=== PATIENT | female | born 1975 ===

== ENCOUNTER → 2020-04-02 13:54 | Outpatient (BNVA) | payer OTHER, SELFPAY | PROVIDERS: PCP Nurse Practitioner Family; Visit Provider Surgery | DX: K64.4 Residual hemorrhoidal skin tags (principal) | CPT/HCPCS: 99202 ==

== ENCOUNTER 2020-04-18 08:02 | Day surgery (SDC) | payer OTHER, SELFPAY ==
[2020-04-14 15:38] VITALS: BMI 32.9
--- NOTE | 2020-04-17 10:24 | P.CONAN_ITS ---
Documented by User: Jennifer Silvestre 04/17/20 10:26 HPI - Anesthesia Eval Consult details Narrative: 44yoF for Hemorrhoidectomy,EUA possible sphincterotomy PMFSH Past Medical History Medical History Back pain Depression with anxiety Essential hypertension External hemorrhoids with complication Hemorrhoid Psoriasis Rectal or anal pain Restless leg syndrome Family History Family History Mother Diabetes mellitus Essential hypertension Sister Diabetes mellitus Psoriasis Surgical History Surgical History History of partial hysterectomy Social History Social History Alcohol intake: never Smoking Status: Never smoker Use of substances other than those prescribed or required for medical reasons: No Advance Directives: No Advance Directives Information Provided: No Advance Directives on File: No Meds Allergies Allergy/AdvReac Type Severity Reaction Status Date / Time N.K.D.A Allergy Unknown none Uncoded 03/25/20 09:29 Home Medications Medication Instructions Recorded Confirmed Type cholecalciferol (vitamin D3) 50 50 mcg PO DAILY 03/25/20 04/14/20 History mcg (2,000 unit) capsule clobetasol 0.05 % topical cream TOPICAL 03/25/20 03/25/20 History hydroxyzine HCl 25 mg tablet 25 mg PO BID 03/25/20 04/14/20 History lisinopril 10 mg tablet 10 mg PO DAILY 03/25/20 04/14/20 History sertraline 100 mg tablet 150 mg PO DAILY tab 03/25/20 04/14/20 History sertraline 50 mg tablet 50 mg PO DAILY 03/25/20 04/14/20 History Exam Exam Date and Time: April 17, 2020 1024 Height,Weight and Vital Signs: Height 4 ft 11 in Weight 73.936 kg Assessment and Plan Assessment Anesthesia Assessment: Chart Reviewed Documented by User: Fadumo Olivarez 04/18/20 09:10 [facility] Past Medical History Medical History Back pain Depression with anxiety Essential hypertension External hemorrhoids with complication Hemorrhoid Psoriasis Rectal or anal pain Restless leg syndrome Family History Family History Mother Diabetes mellitus Essential hypertension Sister Diabetes mellitus Psoriasis Surgical History Surgical History History of partial hysterectomy Social History Social History Alcohol intake: never Smoking Status: Never smoker Use of substances other than those prescribed or required for medical reasons: No Advance Directives: No Advance Directives Information Provided: No Advance Directives on File: No Meds Allergies Allergy/AdvReac Type Severity Reaction Status Date / Time N.K.D.A Allergy Unknown none Uncoded 03/25/20 09:29 Home Medications Medication Instructions Recorded Confirmed Type cholecalciferol (vitamin D3) 50 50 mcg PO DAILY 03/25/20 04/14/20 History mcg (2,000 unit) capsule clobetasol 0.05 % topical cream TOPICAL 03/25/20 03/25/20 History hydroxyzine HCl 25 mg tablet 25 mg PO BID 03/25/20 04/14/20 History lisinopril 10 mg tablet 10 mg PO DAILY 03/25/20 04/14/20 History sertraline 100 mg tablet 150 mg PO DAILY tab 03/25/20 04/14/20 History sertraline 50 mg tablet 50 mg PO DAILY 03/25/20 04/14/20 History Exam Airway Mallampati Class: II TM Dist: >3cm Neck ROM: Full Assessment and Plan Assessment Anesthesia Assessment: Anesthesia Plan Discussed and Chart Reviewed Final Anesthetic Review NPO: Yes ASA Class: II Final Preanesthetic Review: No Changes in Pt Med Stat, Meds/Allgs Chart Reviewed, Consent Obtained/Reviewed and Anes Risks/Benef Reviewed Patient Risk: Low Procedure Risk: Low Assessment/Block/Sedation in SS: Assess/Block/Sedation-SS Anesthetic Plan Anesthetic Plan: GA Disposition: Standard PACU
[2020-04-18] VITALS (7 sets, daily range): BP systolic 89–133; BP diastolic 54–89; PULSE 59–76; RESP 18–20; TEMP 35.4–36.2; O2SAT 94–100
[2020-04-18] MEDS: Lactated Ringers 1,000 ML 100 ML IVCONT (08:53)
--- NOTE | 2020-04-18 09:01 | MHC.SHP ---
Pre-Procedural Eval Section B Chief Complaint: hemorrhoids Allergies: Allergies Allergy/AdvReac Type Severity Reaction Status Date / Time N.K.D.A Allergy Unknown none Uncoded 03/25/20 09:29 Plan Patient has been examined and remains a candidate for the planned procedure
--- NOTE | 2020-04-18 09:46 | PM.OP ---
Brief Operative Note Date of Service: 04/18/20 Pre-op diagnosis: ext hemorrhoids with pain Post-op diagnosis: same Procedure: EUA, hemorrhoidectomy Surgeon: Abdoul Hunt MD Anesthesia: MAC Estimated blood loss (mL): 10 Pathology: other (hemorrhoids) Condition: stable Disposition: PACU
--- NOTE | 2020-04-18 10:35 | OP_ITS ---
SURGEON: Abdoul Hunt MD INDICATIONS: The patient is a 44-year-old female, who was seen in the office because of what she says was painful bowel movements. She describes a large hemorrhoidal column on the right side. She says she has had for many years. She says this becoming more painful. I told her it would be best to proceed with exam under anesthesia and likely hemorrhoidectomy. I explained to her the technique of procedure. I reviewed the risks, benefits, and alternatives, and had given consent. PREOPERATIVE DIAGNOSIS: POSTOPERATIVE DIAGNOSIS: PROCEDURE PERFORMED: Exam under anesthesia, hemorrhoidectomy x1. ESTIMATED BLOOD LOSS: COMPLICATIONS: ANESTHESIA: ASSISTANTS: SPECIMENS: PREOPERATIVE DIAGNOSES: Rectal bleeding, external hemorrhoids. DESCRIPTION OF PROCEDURE: She was brought to the operating room and placed in prone josh-knife position by monitored anesthesia care. The buttocks were retracted with wide tape laterally on both sides. The perianal area was prepped and draped in usual sterile fashion. The surgical time-out was done. Examination of the anal orifice revealed a large external hemorrhoidal column on the right side. I inserted the Baldo-Gallagher retractor and examined the anal canal circumferentially. There were no other lesions seen. There was no anal fissure. There was no induration or any signs of any bleeding. I applied a Thomas grasper at the external hemorrhoidal column on the right side. I made a [id number] stitch at its pedicle near the dentate line using chromic 3-0. I made an incision around the hemorrhoidal column elliptically using blade #15. I excised this hemorrhoidal column along this incision above the plane of sphincters using scissors. I closed this incision with running chromic 3-0 stitch. The incision was reinforced with chromic 3-0 sutures in [id number] fashion for oozing areas. I was then infiltrated the perianal area with Marcaine 0.5% for postop analgesia. Please note that I had also infiltrated the perianal area with lidocaine 1% at the beginning of the case. Again, there were no other lesions seen on careful examination of the anal canal. The procedure was then completed. The patient tolerated the procedure well. There were no complications noted. There was a blood loss about 3 mL. The patient was then transferred back to the recovery room with stable vital signs. MD MITCH Rodriguez/TIFFANIE / [id number]
--- NOTE | 2020-04-18 10:59 | HO.POSTANES ---
Post Anesthesia Evaluation Post Anesthesia Evaluation Vital Signs: Vital Signs Temp Pulse Resp BP Pulse Ox 04/18/20 10:31 97.1 F 65 20 133/89 100 04/18/20 10:16 76 20 112/72 99 04/18/20 10:01 60 20 92/57 L 95 04/18/20 09:56 61 20 90/54 L 94 04/18/20 09:51 62 20 89/62 L 94 04/18/20 09:46 97.0 F 65 18 89/68 L 95 04/18/20 08:42 95.8 F L 59 18 122/63 98 Anesthesia: General LMA Mental Status: Awake Pain Control: Satisfactory Nausea/Vomiting: None Hydration: Adequate Anesthesia-Related Issues: No Anes. Related Issues
== END 2020-04-18 11:18 | disposition home or self-care (01) ==
PROVIDERS: PCP Nurse Practitioner Family; Visit Provider Surgery
PROC: (CPT 46999; principal; 2020-04-18 09:30)
DX: K64.4 Residual hemorrhoidal skin tags (principal)
CPT/HCPCS: 46999; 88304; J1100; J2250; J2405; J3010

== ENCOUNTER → 2020-04-30 14:30 | Outpatient (BNVA) | payer OTHER, SELFPAY | PROVIDERS: PCP Nurse Practitioner Family; Visit Provider Anesthesiology | DX: G58.9 Mononeuropathy, unspecified (principal); E65 Localized adiposity; G89.4 Chronic pain syndrome | CPT/HCPCS: 99212 ==

== ENCOUNTER → 2020-05-07 15:22 | Outpatient (BNVA) | payer OTHER, SELFPAY | PROVIDERS: PCP Nurse Practitioner Family; Visit Provider Surgery | DX: K64.4 Residual hemorrhoidal skin tags (principal) | CPT/HCPCS: 99212 ==

== ENCOUNTER → 2020-06-02 14:08 | Outpatient (BNVA) | payer OTHER, SELFPAY | PROVIDERS: PCP Nurse Practitioner Family; Visit Provider Surgery | DX: K62.89 Other specified diseases of anus and rectum (principal) | CPT/HCPCS: 99212 ==

== ENCOUNTER → 2020-06-30 13:49 | Outpatient (BNVA) | payer OTHER, SELFPAY | PROVIDERS: PCP Nurse Practitioner Family; Visit Provider Anesthesiology | DX: G58.9 Mononeuropathy, unspecified (principal); E65 Localized adiposity; G89.4 Chronic pain syndrome; M16.10 Unilateral primary osteoarthritis, unspecified hip | CPT/HCPCS: 99212 ==

== ENCOUNTER 2020-11-03 11:38 | Outpatient (REF) | payer OTHER, SELFPAY ==
[2020-11-03 14:16] LABS: Alanine Aminotransferase 19 U/L (0-31); Albumin Level 4.1 g/dL (3.5-5.0); Alkaline Phosphatase 60 U/L (39-117); Anion Gap 12 (12-20); Aspartate Amino Transferase 18 U/L (5-31); Bilirubin Total 0.4 mg/dL (0.0-1.0); Blood Urea Nitrogen 18 mg/dL (9-16); Calcium 8.7 mg/dL (8.4-10.2); Carbon Dioxide 25 mmol/L (22-29); Chloride 107 mmol/L (96-108); Cholesterol 181 mg/dL; Estimated Glomerular Filt Rate > 60; Glucose Fasting 80 mg/dL (60-99); HDL Cholesterol 55 mg/dL; LDL Cholesterol Calculated 113 mg/dl; Potassium 4.3 mmol/L (3.3-5.1); Sodium 140 mmol/L (135-145); Total Protein 6.4 g/dL (6.5-8.0); Triglycerides 67 mg/dL
[2020-11-03 14:30] LABS: TSH reflex Free T4 1.27 uIU/mL (0.32-4.0)
== END 2020-11-03 11:39 | disposition home or self-care (01) ==
LOC: HO.HMGCLDS 11:38
PROVIDERS: PCP Nurse Practitioner Family; Visit Provider Nurse Practitioner Family
DX: Z00.00 Encounter for general adult medical examination without abnormal findings (principal)
CPT/HCPCS: 36415; 80053; 80061; 84443

== ENCOUNTER 2020-11-13 10:54 | Outpatient (REF) | payer OTHER, SELFPAY ==
[2020-11-14 11:37] LABS: BV Int Neg Control Negative (Negative); BV Int Pos Control Positive (Positive)
[2020-11-14 11:47] LABS: CT PCR NOT DETECTED (Not Detect.); NG PCR NOT DETECTED (Not Detect.)
== END 2020-11-13 10:55 | disposition home or self-care (01) ==
LOC: HO.LAB 10:54
PROVIDERS: PCP Nurse Practitioner Family; Visit Provider Obstetrics & Gynecology
DX: Z11.3 Encounter for screening for infections with a predominantly sexual mode of transmission (principal); B37.3 Candidiasis of vulva and vagina
CPT/HCPCS: 87480; 87491; 87510; 87591; 87660; 99212

== ENCOUNTER 2020-12-12 14:10 | Outpatient (REF) | payer OTHER, SELFPAY ==
--- NOTE | ~2020-12-12 | MM_ITS ---
EXAMINATION: MM SCREENING DIGITAL BREAST TOMOSYNTHESIS, BILATERAL CLINICAL INFORMATION: Screening. Asymptomatic. The lifetime risk of breast cancer based on the Tyrer-Cuzick Model is 10%. COMPARISON: Mammography: 04/25/2014 (new baseline) TECHNIQUE: Digital breast tomosynthesis is performed in both the craniocaudal and mediolateral oblique views along with computer-aided detection (CAD). Synthesized 2D images are generated from the tomosynthesis. FINDINGS: There are scattered areas of fibroglandular density (ACR BI-RADS breast composition Category b). There are no significant masses, abnormal calcifications, or other abnormalities. Parenchymal pattern is similar to prior study. The axilla and skin contours are unremarkable. No significant changes. MM/MM tomosynthesis screening BI IMPRESSION: No mammographic evidence of malignancy. ASSESSMENT: BI-RADS 1: Negative RECOMMENDATION: Routine annual mammography screening. This patient's information was entered into a reminder system with a target due date for their next mammogram.
== END 2020-12-12 14:11 | disposition home or self-care (01) ==
LOC: HO.MAMMO 14:10
PROVIDERS: Visit Provider Nurse Practitioner Family
DX: Z12.31 Encounter for screening mammogram for malignant neoplasm of breast (principal)
CPT/HCPCS: 77063; 77067

== ENCOUNTER → 2021-01-05 15:52 | Outpatient (BNVA) | payer OTHER, SELFPAY | PROVIDERS: Visit Provider Anesthesiology | DX: G58.9 Mononeuropathy, unspecified (principal); G89.4 Chronic pain syndrome; M16.10 Unilateral primary osteoarthritis, unspecified hip; E65 Localized adiposity; Z79.899 Other long term (current) drug therapy | CPT/HCPCS: 99212 ==

== ENCOUNTER 2021-01-19 16:02 | Outpatient (REF) | payer OTHER, SELFPAY ==
--- NOTE | ~2021-01-19 | MR_ITS ---
MR LUMBAR SPINE WITHOUT CONTRAST CLINICAL INFORMATION: Spinal stenosis, lumbar region. COMPARISON: Lumbar spine MRI 12/20/2018. TECHNIQUE: MRI of the lumbar spine was obtained using routine sequences without contrast. FINDINGS: There are 5 nonrib-bearing lumbar-type vertebral bodies. Lumbar alignment is maintained. Vertebral body heights are preserved. There is marrow edema along the upper endplate of L2 eccentric to the left side that could be degenerative though a mild acute upper endplate compression fracture would be difficult to exclude. No additional bone marrow edema. Conus terminates at the L2 level. There are no significant extraspinal soft tissue findings. Hypertrophic degenerative changes across the SI joints bilaterally. At T10-T11, a shallow central disc protrusion mildly narrows the central canal. Findings unchanged. L1-L2: There is an annular disc bulge eccentric to the right side and there is mild bilateral facet arthropathy. No central canal stenosis and no foraminal stenosis. Findings unchanged. L2-L3: Small annular disc bulge and mild to moderate bilateral facet arthropathy. No central canal stenosis and no foraminal stenosis. Findings unchanged. L3-L4: Annular disc bulge and moderate bilateral facet arthropathy. No central canal stenosis. Mild foraminal encroachment bilaterally. Findings unchanged. L4-L5: There is a diffuse annular disc bulge and there is moderate bilateral facet arthropathy. No central canal stenosis. There is mild foraminal encroachment bilaterally. L5-S1: Shallow central disc protrusion associated with an annular fissure is stable, mildly narrowing the central canal. Disc osteophyte and facet arthropathy result in similar moderate to severe left and moderate right foraminal stenosis with mass effect on the exiting left greater than right L5 nerve roots. MR/MR lumbar spine wo con IMPRESSION: - At L5-S1, multifactorial degenerative changes result in stable appearing moderate to severe left and moderate right foraminal stenosis with mass effect on the exiting left greater than right L5 nerve roots. A shallow central disc protrusion associated with an annular fissure at this level. Additional stable appearing degenerative findings as discussed above. - There is marrow edema along the upper endplate of L2 eccentric to the left side that could be degenerative though a mild acute upper endplate compression fracture would be difficult to exclude. - At T10-T11, a shallow central disc protrusion continues to mildly narrow the central canal and slightly flatten the ventral cord.
== END 2021-01-19 16:03 | disposition home or self-care (01) ==
LOC: HO.MRI 16:02
PROVIDERS: Visit Provider Anesthesiology
DX: M48.061 Spinal stenosis, lumbar region without neurogenic claudication (principal)
CPT/HCPCS: 72148

== ENCOUNTER → 2021-02-02 11:24 | Outpatient (BNVA) | payer OTHER, SELFPAY | PROVIDERS: PCP Nurse Practitioner Family; Visit Provider Anesthesiology | DX: M16.10 Unilateral primary osteoarthritis, unspecified hip (principal); M51.36 Other intervertebral disc degeneration, lumbar region; M48.061 Spinal stenosis, lumbar region without neurogenic claudication; M47.817 Spondylosis without myelopathy or radiculopathy, lumbosacral region; G58.9 Mononeuropathy, unspecified; G89.4 Chronic pain syndrome; E65 Localized adiposity | CPT/HCPCS: 99212 ==

== ENCOUNTER 2021-02-18 14:41 | Outpatient (REF) | payer OTHER, SELFPAY ==
[2021-02-19 02:12] LABS: CT PCR NOT DETECTED (Not Detect.); NG PCR NOT DETECTED (Not Detect.)
[2021-02-19 08:41] LABS: BV Int Neg Control Negative (Negative); BV Int Pos Control Positive (Positive)
[2021-02-21 13:41] LABS: HPV mRNA E6/E7 rflx Not Detected (Not Detected)
== END 2021-02-18 14:42 | disposition home or self-care (01) ==
LOC: HO.LAB 14:41
PROVIDERS: Visit Provider Advanced Practice Midwife
DX: Z01.419 Encounter for gynecological examination (general) (routine) without abnormal findings (principal); Z11.3 Encounter for screening for infections with a predominantly sexual mode of transmission; Z11.51 Encounter for screening for human papillomavirus (HPV); N76.0 Acute vaginitis; N95.1 Menopausal and female climacteric states; Z90.711 Acquired absence of uterus with remaining cervical stump
CPT/HCPCS: 87480; 87491; 87510; 87591; 87624; 87660; 88142

== ENCOUNTER 2021-03-24 06:39 | Outpatient (REF) | payer OTHER, SELFPAY ==
--- NOTE | ~2021-03-24 | FL_ITS ---
EXAMINATION: XR FLUOROSCOPY WITH IMAGES CLINICAL INFORMATION: M51.36 - Other intervertebral disc degeneration, lumbar COMPARISON: MR lumbar spine 01/19/2021 TECHNIQUE: Fluoroscopy performed by Dr. Kaushik Lord. Fluoroscopy time: 0.6 minutes DAP: 7.06 Gycm2 Images: 2 FINDINGS: There are spinal needles overlying the bilateral outer L5 neural foramen. There is contrast seen in the respective nerve sheaths. Some early transforaminal epidural extension is suggested. No visible vascular communication. FL/FL guidance in treatment room IMPRESSION: Fluoroscopy for pain management procedures.
== END 2021-03-24 06:40 | disposition home or self-care (01) ==
LOC: HO.RADIR 06:39
PROVIDERS: Visit Provider Anesthesiology
DX: M51.36 Other intervertebral disc degeneration, lumbar region (principal); M47.817 Spondylosis without myelopathy or radiculopathy, lumbosacral region; M48.061 Spinal stenosis, lumbar region without neurogenic claudication; M16.10 Unilateral primary osteoarthritis, unspecified hip; G89.4 Chronic pain syndrome; E65 Localized adiposity; G58.9 Mononeuropathy, unspecified
CPT/HCPCS: J3300; Q9967

== ENCOUNTER → 2021-04-22 13:14 | Outpatient (BNVA) | payer OTHER, SELFPAY | PROVIDERS: PCP Nurse Practitioner Family; Visit Provider Anesthesiology | DX: M16.10 Unilateral primary osteoarthritis, unspecified hip (principal); M51.36 Other intervertebral disc degeneration, lumbar region; M48.061 Spinal stenosis, lumbar region without neurogenic claudication; M47.817 Spondylosis without myelopathy or radiculopathy, lumbosacral region; G58.9 Mononeuropathy, unspecified; G89.4 Chronic pain syndrome; E65 Localized adiposity | CPT/HCPCS: 64483 ==

== ENCOUNTER 2021-06-18 16:00 | Outpatient (RCR) | payer OTHER, SELFPAY ==
--- NOTE | 2021-06-03 14:57 | MHC.PT.EP ---
[facility] [place] Office [place] Office [place] Office [address] Amber Amaral [address] [phone] F: [phone] F: [phone] F: [phone] F: [phone] Physical Therapy Plan of Care Date of Evaluation: Date of Surgery: n/a Diagnosis: lumbosacral region spondylosis Assessment: Patient is a 46 year old female presenting to PT with complaints of pain in her low back. Pt reports onset of pain began 15 years ago after a fall on ice. She presents today with impairments in pain, lumbar ROM, hip strength, core strength, and posture. Pt's current occupation is none, with baseline physical activities including ADLs, lifting, standing, ambulation. 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 Clinical presentation today is most consistent with signs and sx associated with chronic low back pain with MRI findings of degenerative changes as outlined as above and pt will benefit from skilled PT to address the following problems and impairments noted upon evaluation: pain, lumbar ROM, hip strength, core strength, and posture. These problems limit the patient with the following functional activities: ADLs, lifting, standing, ambulation. The prescribed treatment plan of care is medically necessary. Co-morbidities of ADLs, lifting, standing, ambulation were identified and taken into considerations of plan of care. Pt was educated on HEP, role of PT, prognosis, POC. Frequency and Duration: The patient will be seen 2 x week x 4 weeks Short Term Goals: Pt will demonstrate ability to complete lumbar AROM with min to no pain in 2 weeks. Pt will demonstrate improved hip strength by 1/3 MMT for improved lumbopelvic stability in 2 weeks. Pt will demonstrate improved postural awareness by sitting with biomechanically correct posture without cues throughout session to improve overall postural function in 2 weeks. Pt will demonstrate ability to perform PPT with good TA recruitment in 2 weeks for improved core strength. Shelter Goals: Pt will demonstrate improved Tommy score to <20% disability in 4 weeks for improved functional mobility. Pt will demonstrate ability to stand with min to no pain x 15 min in 4 weeks for improved ability to shower and wash dishes. Pt will demonstrate ability to ambulate x 15 min in 4 weeks with min to no pain for improved ability to grocery shop. Treatment Plan: Modalities to reduce pain, spasms and effusion. Manual therapy to restore motion and function. Therapeutic exercise to improve strength and flexibility. Neuromuscular re-education for posture and balance. Therapeutic activities to return to functional activities of daily living. Electronically signed by: Rosie Iraheta, PT, DPT, ATC Please sign and return to therapist. Thank you for your referral.
--- NOTE | 2021-07-17 11:10 | MHC.PT.DC ---
[facility] [place] Office [place] Office [place] Office [address] [phone] F: [phone] F: [phone] F: [phone] F: [phone] Physical Therapy Discharge Report Diagnosis: lumbosacral region spondylosis Date of Surgery: n/a Date of Evaluation: 06/03/21 Date of Discharge: 07/17/21 Treatments to Date: 3 Cancellations to Date: 4 No Shows to Date: 2 Discharge Status: Visit Non-compliance Discharge Summary: Pt has failed to comply with [facility] attendance policy and no showed and cancelled her remaining 4 appointments. Current status unknown at this time. Electronically signed by: Rosie Iraheta, PT, DPT, ATC Please sign and return to therapist. Thank you for your referral.
== END 2021-07-17 11:10 | disposition home or self-care (01) ==
LOC: HO.PTCHIC 16:00
PROVIDERS: PCP Nurse Practitioner Family; Visit Provider Anesthesiology
DX: M47.817 Spondylosis without myelopathy or radiculopathy, lumbosacral region (principal); M51.36 Other intervertebral disc degeneration, lumbar region
CPT/HCPCS: 97110; 97162

== ENCOUNTER 2021-10-19 11:04 | Outpatient (REF) | payer OTHER, SELFPAY ==
--- NOTE | ~2021-10-19 | XR_ITS ---
EXAMINATION: XR KNEE, RIGHT CLINICAL INFORMATION: Pain COMPARISON: None TECHNIQUE: Four views of the right knee. FINDINGS: Bones and soft tissues are normal. No fracture or joint effusion. Alignment is anatomic. Joint spaces are well maintained. No abnormal soft tissue calcification. XR/XR knee RT 4V IMPRESSION: Normal right knee.
== END 2021-10-19 11:05 | disposition home or self-care (01) ==
LOC: HO.HMGCX 11:04
PROVIDERS: PCP Nurse Practitioner Family; Visit Provider Nurse Practitioner Family
DX: M25.561 Pain in right knee (principal)
CPT/HCPCS: 73564

== ENCOUNTER 2021-12-14 14:14 | Outpatient (REF) | payer OTHER, SELFPAY ==
--- NOTE | ~2021-12-14 | MM_ITS ---
EXAMINATION: MM SCREENING DIGITAL BREAST TOMOSYNTHESIS, BILATERAL CLINICAL INFORMATION: Screening. Asymptomatic. The lifetime risk of breast cancer based on the Tyrer-Cuzick Model is 7%. COMPARISON: Mammography: 12/12/2020, 04/25/2014 TECHNIQUE: Digital breast tomosynthesis is performed in both the craniocaudal and mediolateral oblique views along with computer-aided detection (CAD). Synthesized 2D images are generated from the tomosynthesis. FINDINGS: There are scattered areas of fibroglandular density (ACR BI-RADS breast composition Category b). There are no significant masses, abnormal calcifications, or other abnormalities. Parenchymal pattern is similar to prior studies. No significant changes. MM/MM tomosynthesis screening BI IMPRESSION: No mammographic evidence of malignancy. ASSESSMENT: BI-RADS 1: Negative RECOMMENDATION: Routine annual mammography screening. This patient's information was entered into a reminder system with a target due date for their next mammogram.
== END 2021-12-14 14:15 | disposition home or self-care (01) ==
LOC: HO.MAMMO 14:14
PROVIDERS: PCP Nurse Practitioner Family; Visit Provider Nurse Practitioner Family
DX: Z12.31 Encounter for screening mammogram for malignant neoplasm of breast (principal)
CPT/HCPCS: 77063; 77067

== ENCOUNTER 2021-12-15 06:14 | Outpatient (REF) | payer OTHER, SELFPAY ==
--- NOTE | ~2021-12-15 | FL_ITS ---
EXAMINATION: XR FLUOROSCOPY WITH IMAGES CLINICAL INFORMATION: M47.816 - Spondylosis without myelopathy or radiculopathy, lumbar region COMPARISON: MR lumbar spine 01/19/2021 TECHNIQUE: Fluoroscopy performed by pain management physician. Fluoroscopy time: 0.4 minutes. Cumulative Dose: 5.93 mGy. DAP: 1.16 Gy-cm2. Images: 2. FINDINGS: There are spinal needles overlying the outer left L2 and L4 neural foramen. There is contrast seen in the respective nerve sheaths. There is also contrast noted at at the left L3 nerve sheath. Some early transforaminal epidural extension is suggested. No visible vascular communication. FL/FL guidance in treatment room IMPRESSION: Fluoroscopy for pain management procedures.
== END 2021-12-15 06:15 | disposition home or self-care (01) ==
LOC: HO.RADIR 06:14
PROVIDERS: Visit Provider Anesthesiology
DX: M47.816 Spondylosis without myelopathy or radiculopathy, lumbar region (principal); G58.9 Mononeuropathy, unspecified; E65 Localized adiposity; G89.4 Chronic pain syndrome; M16.10 Unilateral primary osteoarthritis, unspecified hip; M51.36 Other intervertebral disc degeneration, lumbar region; M48.061 Spinal stenosis, lumbar region without neurogenic claudication
CPT/HCPCS: 64493; 64494; 64495; J3300

== ENCOUNTER 2022-01-26 07:15 | Day surgery (SDC) | payer OTHER, SELFPAY ==
--- NOTE | ~2022-01-26 | FL_ITS ---
EXAMINATION: XR FLUOROSCOPY WITH IMAGES CLINICAL INFORMATION: M47.816 - Spondylosis without myelopathy or radiculopathy, lumbar region. Sprint implant. COMPARISON: MR lumbar spine 01/19/2021 TECHNIQUE: Fluoroscopy performed by Dr. Kaushik Lord. Fluoroscopy time: 0.01 minutes. Cumulative Dose: 3.2 mGy. DAP: 0.874 Gy-cm2. Images: 2. FINDINGS: Initial image shows needle directed towards left L5 neural foramen just inferior to the pedicle. Follow-up image shows lead with tip in region of outer left L5 foramen. FL/FL guidance in OR IMPRESSION: Fluoroscopy for pain management procedure.
--- NOTE | 2022-01-26 07:24 | MHC.SHP ---
Pre-Procedural Eval Section A Date of Service: 01/26/22 The patient is an INPATIENT: No Changes since office visit: Yes Patient answered all questions The History & Physical has been completed within 30 days and I have reviewed it.: No Section B Chief Complaint: Spondylosis without myelopathy or radiculopathy, l Details of Present Illness: as above Relevant Family History (Specify if Yes): No Relevant Social History: None Present Medications: see Short Stay Collaborative assessment Medical History: No relevant PMH History of Previous Operations: No relevant previous surgery Allergies: Allergies Allergy/AdvReac Type Severity Reaction Status Date / Time No Known Allergies Allergy Verified 12/23/21 16:25 Review of Systems Sugical H&P ROS: Negative: Constitution, Cardiovascular, Respiratory, Neurological, Psychiatric, Hem-Onc, Allergic/Immunologic, Gastrointestinal, Genitourinary, Musculoskeletal, Integumentary, Endocrine and Eyes/Ears/Nose/Throat Exam Surgical H&P Exam: Normal: HEENT, Normal: Heart, Normal: Lungs, Normal: Extremities, Normal: Abdomen, Normal: Skin and Normal: Neurological Plan Diagnosis/Plan: Unchanged I have reviewed the history and physical and performed a pertinent physical examination on my patient. No changes have occurred unless specified.
[2022-01-26 07:52] VITALS: BP 116/70; PULSE 78; RESP 18; TEMP 36.1; O2SAT 97; BMI 34.3
--- NOTE | 2022-01-26 08:30 | W.PM.OPN ---
Operative Note Operative Note Date of Service: 01/26/22 Narrative: Percutaneous implantation of peripheral nerve stimulation Sprint system. After the risks, benefits and alternatives were discussed with the patient and informed consent was obtained, patient was brought to the operating room and placed in the prone position. ? Time out was performed delineating correct site and side of the procedure , name and of the patient, patient participated in time out procedure.? Patient received antibiotics 2 g cefazolin approximately 3 minutes before the onset of the procedure. C-arm was brought over the operating field and clear picture of the L4 and L5 laminas on the left was delineated on the screen.? The lower back of the patient was prepped with ChloraPrep and draped with full body fenestrated drape. The central portion of the L5 lamina in the proximity of the left L4- L5 facet joint was chosen as a target of the needle tip insertion. After identifying and marking the intended target, the skin around the planned entry point and the subcutaneous tissues were injected with local anesthetic forming skin wheal. A percutaneous sleeve and stimulating probe lead introduction system were assembled, inserted and advanced through the skin wheal to the? point of interest under C-arm view in tunnel vision fashion, the introducer needle was delivered to a location in proximity to the nerve. multiple stimulations were performed and? Nerve target acquisition was confirmed noting generation of? in the? corresponding to the nerve being stimulated. Various electrical parameter combinations were tested overlapping the distribution of the patient?s typical region of pain. The patient reported that the stimulation she received covered all of her pain. Decision was made not do L4 lead. The stimulating probe was removed from the introducer and a percutaneous lead was guided through the needle and delivered to a location in similar proximity to the nerve. Final location was verified with electrical stimulation. The introducer needle was removed, and the exposed end of the percutaneous lead was attached to an external stimulator unit. Various electrical parameter combinations were again tested until the patient indicated paresthesia or muscle tension overlapping the distribution of the patient?s typical region of pain. After confirming that lead impedance was in the normal range, the external unit was detached, the needle was removed, and the lead was anchored at the skin. The lead was threaded into the connector block and electrical continuity and desired patient response was confirmed. The connector block was attached to the external stimulator unit. ? The site was covered with a sterile occlusive dressing . Upon completion of the procedure the patient was taken outside the OR where she recovered uneventfully she went home without immediate complications.
--- NOTE | 2022-01-26 09:02 | P.BOP_ITS ---
Brief Operative Note Date of Service: 01/26/22 Pre-op diagnosis: spondylosis lumbar spine Post-op diagnosis: same Procedure: SPRINT PNS L5 Left Implants: none permanent. Surgeon: Kaushik Lord MD Was an Chief Clinical Dietitian used for this Procedure?: No Estimated blood loss (mL): 0 Condition: stable Disposition: PACU
[2022-01-26 09:05] VITALS: BP 124/63; PULSE 71; RESP 18; TEMP 36.9; O2SAT 96
== END 2022-01-26 09:30 | disposition home or self-care (01) ==
PROVIDERS: PCP Nurse Practitioner Family; Visit Provider Anesthesiology
PROC: (CPT 64555; principal; 2022-01-26 08:40)
DX: M47.817 Spondylosis without myelopathy or radiculopathy, lumbosacral region (principal); M16.10 Unilateral primary osteoarthritis, unspecified hip; M48.061 Spinal stenosis, lumbar region without neurogenic claudication; M51.36 Other intervertebral disc degeneration, lumbar region; G89.4 Chronic pain syndrome; G58.9 Mononeuropathy, unspecified; E65 Localized adiposity
CPT/HCPCS: 64555; C1778; J0690; J2795

== ENCOUNTER → 2022-02-03 14:54 | Outpatient (BNVA) | payer OTHER, SELFPAY | PROVIDERS: PCP Nurse Practitioner Family; Visit Provider Anesthesiology | DX: G89.4 Chronic pain syndrome (principal); M16.10 Unilateral primary osteoarthritis, unspecified hip; M51.36 Other intervertebral disc degeneration, lumbar region; M48.061 Spinal stenosis, lumbar region without neurogenic claudication; M47.817 Spondylosis without myelopathy or radiculopathy, lumbosacral region; G58.9 Mononeuropathy, unspecified; E65 Localized adiposity | CPT/HCPCS: 99212 ==

== ENCOUNTER → 2022-02-17 13:52 | Outpatient (BNVA) | payer OTHER, SELFPAY | PROVIDERS: PCP Nurse Practitioner Family; Referring Provider Nurse Practitioner Family; Visit Provider Nurse Practitioner Family | DX: Z12.11 Encounter for screening for malignant neoplasm of colon (principal) | CPT/HCPCS: 99202; 99212 ==

== ENCOUNTER → 2022-03-29 13:09 | Outpatient (BNVA) | payer OTHER, SELFPAY | PROVIDERS: PCP Nurse Practitioner Family; Visit Provider Anesthesiology | DX: Z45.89 Encounter for adjustment and management of other implanted devices (principal) | CPT/HCPCS: 99211 ==

== ENCOUNTER 2022-04-15 12:09 | Outpatient (REF) | payer OTHER, SELFPAY ==
[2022-04-16 09:02] LABS: BV Int Neg Control Negative (Negative); BV Int Pos Control Positive (Positive)
== END 2022-04-15 12:10 | disposition home or self-care (01) ==
LOC: HO.LNP 12:09
PROVIDERS: Visit Provider Advanced Practice Midwife
DX: N76.0 Acute vaginitis (principal)
CPT/HCPCS: 87480; 87510; 87660

== ENCOUNTER → 2022-08-18 15:09 | Outpatient (BNVA) | payer MEDICARE, MEDICAID, SELFPAY | PROVIDERS: PCP Nurse Practitioner Family; Visit Provider Anesthesiology | DX: G58.9 Mononeuropathy, unspecified (principal); E65 Localized adiposity; G89.4 Chronic pain syndrome; M16.10 Unilateral primary osteoarthritis, unspecified hip; M51.36 Other intervertebral disc degeneration, lumbar region; M48.061 Spinal stenosis, lumbar region without neurogenic claudication; M47.817 Spondylosis without myelopathy or radiculopathy, lumbosacral region | CPT/HCPCS: 99212 ==

== ENCOUNTER 2022-09-16 12:55 | Day surgery (SDC) | payer MEDICARE, MEDICAID, SELFPAY ==
--- NOTE | ~2022-09-16 | FL_ITS ---
EXAMINATION: XR FLUOROSCOPY WITH IMAGES CLINICAL INFORMATION: Nerve stimulator COMPARISON: Fluoroscopic spot views 01/26/2022. TECHNIQUE: Fluoroscopy Supervised By: Dr. Kaushik Lord. Fluoroscopy Time: 0.1 minutes. Cumulative Dose: 2.40 mGy. DAP: 0.0417 Gycm2. Images: 2. FINDINGS: Initial image saved shows needle/electrode with tip overlying left L5 lamina. Subsequent image saved shows lead overlying lateral left lamina L5 at level of pedicles. FL/FL guidance in OR IMPRESSION: Fluoroscopy for pain management procedure.
--- NOTE | 2022-09-16 13:08 | MHC.SHP ---
Pre-Procedural Eval Section A Date of Service: 09/16/22 The patient is an INPATIENT: No Changes since office visit: Yes Patient answered all questions The History & Physical has been completed within 30 days and I have reviewed it.: No Section B Chief Complaint: Chronic pain syndrome,spondylosis w/o myelopathy Details of Present Illness: as above Relevant Family History (Specify if Yes): No Relevant Social History: None Present Medications: see Short Stay Collaborative assessment Medical History: No relevant PMH History of Previous Operations: No relevant previous surgery Allergies: Allergies Allergy/AdvReac Type Severity Reaction Status Date / Time No Known Allergies Allergy Verified 04/15/22 11:40 Review of Systems Sugical H&P ROS: Negative: Constitution, Cardiovascular, Respiratory, Neurological, Psychiatric, Hem-Onc, Allergic/Immunologic, Gastrointestinal, Genitourinary, Musculoskeletal, Integumentary, Endocrine and Eyes/Ears/Nose/Throat Exam Surgical H&P Exam: Normal: HEENT, Normal: Heart, Normal: Lungs, Normal: Extremities, Normal: Abdomen, Normal: Skin and Normal: Neurological Plan Diagnosis/Plan: Unchanged I have reviewed the history and physical and performed a pertinent physical examination on my patient. No changes have occurred unless specified. Time Spent With Patient Time: Total time managing care of this patient today ____ minutes.
[2022-09-16 13:19] VITALS: BP 109/68; PULSE 67; RESP 18; TEMP 36.8; O2SAT 98; BMI 34.1
--- NOTE | 2022-09-16 14:17 | P.BOP_ITS ---
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
--- NOTE | 2022-09-16 14:18 | P.OP_ITS ---
Operative Note Operative Note Date of Service: 09/16/22 Narrative: SPRINT L5 Left PNS. Percutaneous implantation of peripheral nerve stimulation Sprint system. After the risks, benefits and alternatives were discussed with the patient and informed consent was obtained, patient was placed in the prone position and padded to foster comfort. Time out was performed delineating correct site and side of the procedure , name and of the patient, patient participated in time out procedure. Sterily draped C-arm was brought over the operating field and clear picture of the L5 lamina on the right was delineated on the screen. The upper central portion of the lamina was chosen as a target of the neetle tip incertion . After identifying and marking the intended target, the skin around the planned entry point and the subcutaneous tissues were injected with local anesthetic forming skin wheal.. A percutaneous sleeve and stimulating probe lead introduction system were assembled, inserted and advanced through the skin wheal to the point of interest under C-arm view in tunnel vision fashion, the introducer needle was delivered to a location in proximity to the nerve. Multiple stimulation parameters were used to deliver stimulation to the nerve in concert with stimu lating at multiple positions around the nerve. nerve target acquisition was confirmed noting generation of in the corresponding to the nerve being stimulated. Various electrical parameter combinations were tested, and the lead location was adjusted (physically relocated) until the patient indicated overlapping the distribution of the patient?s typical region of pain. The stimulating probe was removed from the introducer and a percutaneous lead was guided through the needle and delivered to a location in similar proximity to the nerve. Final location was verified with electrical stimulation. The introducer needle was removed, and the exposed end of the percutaneous lead was attached to an external stimulator unit. At the end of the case various electrical parameter combinations were again tested until the patient indicated paresthesia or muscle tension overlapping the distribution of the patient?s typical region of pain. After confirming that lead impedance was in the normal range, the external unit was detached, the needle was removed, and the lead was anchored at the skin. The lead was threaded into the connector block and electrical continuity and desired patient response was confirmed. The connector block was attached to the external stimulator unit. The site was covered with a sterile occlusive dressing and a image was taken to document final placement. Upon completion of the procedure the patient was taken outside the OR where she recovered uneventfully she went home without immediate complications.
[2022-09-16 14:20] VITALS: BP 133/68; PULSE 64; RESP 18; TEMP 37.3; O2SAT 97
== END 2022-09-16 14:41 | disposition home or self-care (01) ==
PROVIDERS: PCP Nurse Practitioner Family; Visit Provider Anesthesiology
PROC: (CPT 64555; principal; 2022-09-16 14:00)
DX: M47.816 Spondylosis without myelopathy or radiculopathy, lumbar region (principal); G89.4 Chronic pain syndrome; M51.36 Other intervertebral disc degeneration, lumbar region; M48.061 Spinal stenosis, lumbar region without neurogenic claudication; G58.9 Mononeuropathy, unspecified; I10 Essential (primary) hypertension; M16.10 Unilateral primary osteoarthritis, unspecified hip; E65 Localized adiposity; F41.8 Other specified anxiety disorders; Z79.899 Other long term (current) drug therapy
CPT/HCPCS: 64555; C1778; J2795

== ENCOUNTER → 2022-09-24 13:54 | Outpatient (BNVA) | payer MEDICARE, MEDICAID, SELFPAY | PROVIDERS: PCP Nurse Practitioner Family; Visit Provider Anesthesiology ==

== ENCOUNTER → 2022-10-26 09:26 | Outpatient (BNVA) | payer MEDICARE, MEDICAID, SELFPAY | PROVIDERS: PCP Nurse Practitioner Family; Visit Provider Nurse Practitioner Family | DX: G89.4 Chronic pain syndrome (principal); M51.36 Other intervertebral disc degeneration, lumbar region; M47.816 Spondylosis without myelopathy or radiculopathy, lumbar region | CPT/HCPCS: 99212 ==

== ENCOUNTER 2022-11-15 13:12 | Outpatient (AMB) | payer MEDICARE, MEDICAID, SELFPAY ==
--- NOTE | 2022-11-15 13:15 | MHC.OFFVIS ---
Intake Vital Signs 11/15/22 13:26 Height 4 ft 11 in Weight 173 lb 6 oz BMI 35.0 BP 130/88 Blood Pressure Location Lt brachial Position Sitting Respiration 16 Pulse 82 Pulse Source Pulse Oximeter Pulse Oximetry (%) 97 Oxygen Delivery Method Room Air Intake Visit Reasons: Sprint Removal Intake Note: Patient comes in for sprint removal. Allergies No Known Allergies Allergy (Verified 11/15/22 13:26) HPI HPI Comments History of Present Illness Details Ms. Sanches presents today for Sprint removal. She reports excellent pain relief. Reports absence of pain. She reports better mobility social interactions better activities of daily living, she enjoys being pain free. The dressing was removed. The site was examined and no redness no pathological discharge and no swelling was found in the area surrounding the stimulating electrode wire. Gentle pressure and tugging was applied and stimulating wire was removed. The tip of the wire was intact. ChloraPrep was applied to the area of the removal of the wire and after that sterile adhesive dressing was applied. Patient was not recommended to have shower in 24 hours but after that she is allowed to go for the shower. She no longer need to follow activities limitation. She can not return to full scale activities. She is instructed that if her pain will come back she needs to give us a call and schedule an appointment for yet another sprint PNS insertion. Left L5 Sprint PNS on 09/16/22 inserted. Side effects: itching and tenderness in her Sprint dressing site. PRIOR: Ms. Sanches is very pleasant and very nice 44 years old female who is in my office today status post insertion of left L5 sprint PNS.? She received this procedure? on 01/26/2022 and she reported very good pain relief after the procedure.? She reported better mobility better activities of daily living and better social interactions. It looks like that her pain is starting to come back although in somewhat unusual way.? She reports pain in the projection of the sacroiliac joint with radiation to the left hip however the Codey test is negative, the pelvis compression test is negative, the Stinchfield test is negative and this does not give me in impression that she has sacroiliitis.? Most likely she is suffering from the same problem as it was before.? It has been 8 month since the PNS insertion.? We can repeat this procedure for her in the operating room. Results of L2-L3 L4 dorsal ramus L5 medial branch block which was performed on 12/15/2021.? The patient reports pain relief after the injection for up to 6 hours.? She reports that her pain from level of 7-9 went initially down to 2 out of 10 and 3/10 for the 1st-3 hours after the injection and after that it slowly went back to 4-5 and eventually to 6 on a 6 hour after the injection.? This corresponds to longevity y of the ropivacaine injection action. Prior: complains on lower back pain mostly on the left side with radiation into the left lower extremity.? She is the patient with long history of lower back pain.? She is under observation in my office for more than a year .? She had diagnostic medial branch block on the left which with the a resulting in some pain relief and after that she went for radiofrequency ablation of L4-5 medial branch blocks on the left.? She reported that the procedure was working for only 1 or 2 weeks.? Is supposed to work for at least 6 months.? 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 L5-S1 Bilateral transforaminal epidural steroid injection helped significantly for the pain radiating to the left lower extremity.? However pain on the lateral side of the left lumbar spine remain.? She completed physical therapy less than 1 year ago.? She tried NSAIDs and muscle relaxants to treat her pain with no effect.. [facility] Medical History Arthritis of hip Back pain Chronic pain syndrome Depression with anxiety Disc degeneration, lumbar Essential hypertension External hemorrhoids with complication Hemorrhoid Mononeuropathy, unspecified Psoriasis Rectal or anal pain Restless leg syndrome Spondylosis of lumbosacral joint without myelopathy Truncal obesity Surgical History H/O hemorrhoidectomy History of partial hysterectomy Family History Mother Diabetes mellitus Essential hypertension Sister Diabetes mellitus Psoriasis Maternal Grandmother Breast cancer Social History Housing: Apartment Alcohol intake: never Patient Tobacco Use Status: Never used Tobacco e-Cigarette/Vaping Use: Never Used Second Hand Smoke Exposure: No service: No Current occupational status: unemployed Gender identity: Female Cognitive needs: No Hearing needs: No Vision needs: No Female Reproductive History Menstrual Age of Menarche: 11 Review of Systems Const All systems reviewed & are unremarkable except as noted in HPI and below ENT Reports Normal hearing present Neuro Reports Normal hearing present, Denies confusion and Denies Sensory deficit (Neuro) Psych Denies confusion Physical Exam Const General: No confusion Orientation/consciousness: No confusion Eyes Pupils: Equal, round and reactive pupils present EOM: EOMs intact bilaterally Chest Chest palpation & inspection: normal inspection of the chest Resp Effort & Inspection: normal respiratory effort, able to speak in complete sentences, normal respiratory pattern, no audible wheezes and no cough Cardio Jugular venous distension: no JVD Back/Spine/Pelvis Other: Flexing forward is making her pain worse. Lateral hip rotation causes significant discomfort in the left groin. Codey test is negative on the left Stinchfield test is negative on the left pelvis compression test is negative on the left , 14 finger test may be equivocal on the left. The loading test is positive on the left. Neuro General: No confusion Cranial nerves: Yes Equal, round and reactive pupils present and Yes Normal hearing present Sensory Exam: No Sensory deficit (Neuro) Psych Speech and movement: Normal speech and movement present Affect: normal affect Attitude: cooperative Thought process: Normal thought process present Thought content: Normal thought content present Insight: Good insight present (Psych) Judgement: Good judgement present (Psych) Assessment & Plan Assessment & Plan (1) Disc degeneration, lumbar: Code(s): M51.36 - Other intervertebral disc degeneration, lumbar region (2) Spondylosis of lumbar region without myelopathy or radiculopathy: Code(s): M47.816 - Spondylosis without myelopathy or radiculopathy, lumbar region (3) Chronic pain syndrome: Code(s): G89.4 - Chronic pain syndrome Plan Excellent results of sprint PNS. 0 pain at this time. The device was removed as above. Instructions were given as above. If her pain will come back she will give us a call and schedule another sprint PNS. Alternatively stim wave PNS could be substituted with patient's ability to stimulate her wire on demand without new wire insertion. However the stim wave PNS would require surgery to complete. Coding Level of Care Code Est Pt Level 3 (80268) Diagnoses Disc degeneration, lumbar M51.36 Spondylosis of lumbar region without myelopathy or radiculopathy M47.816 Chronic pain syndrome G89.4
[2022-11-15 13:26] VITALS: BP 130/88; PULSE 82; RESP 16; O2SAT 97; BMI 35.0
== END 2022-11-15 13:26 | disposition home or self-care (01) ==
PROVIDERS: PCP Nurse Practitioner Family; Visit Provider Anesthesiology
DX: M51.36 Other intervertebral disc degeneration, lumbar region (principal); M47.816 Spondylosis without myelopathy or radiculopathy, lumbar region; G89.4 Chronic pain syndrome
CPT/HCPCS: 99213

== ENCOUNTER → 2022-11-15 13:12 | Outpatient (BNVA) | payer MEDICARE, MEDICAID, SELFPAY | PROVIDERS: PCP Nurse Practitioner Family; Visit Provider Anesthesiology | DX: M47.817 Spondylosis without myelopathy or radiculopathy, lumbosacral region (principal); M51.36 Other intervertebral disc degeneration, lumbar region; G89.4 Chronic pain syndrome; G25.81 Restless legs syndrome; G58.9 Mononeuropathy, unspecified | CPT/HCPCS: 99212 ==

== ENCOUNTER 2022-12-24 15:16 | Outpatient (REF) | payer MEDICARE, MEDICAID, SELFPAY | END 2022-12-24 15:17 | disposition home or self-care (01) | LOC: HO.MAMMO 15:16 | PROVIDERS: PCP Nurse Practitioner Family; Visit Provider Nurse Practitioner Family | DX: Z12.31 Encounter for screening mammogram for malignant neoplasm of breast (principal) | CPT/HCPCS: 77063; 77067 ==

== ENCOUNTER → 2022-12-24 15:30 | Outpatient (BNV) | payer MEDICARE, MEDICAID, SELFPAY | PROVIDERS: PCP Nurse Practitioner Family; Visit Provider Radiology Diagnostic Radiology | DX: Z12.31 Encounter for screening mammogram for malignant neoplasm of breast (principal) | CPT/HCPCS: 77063; 77067 ==

== ENCOUNTER → 2023-03-02 10:02 | Outpatient (REF) | payer MEDICARE, MEDICAID, SELFPAY ==
--- NOTE | 2023-03-02 10:04 | CA_ITS ---
Transthoracic Echocardiogram Patient (Last, First, Middle): Marguerite Sanches A Gender: Female Date of : 1975 Age: 47 Procedure Date: 03/02/2023 Procedure Type: Transthoracic Echocardiogram Location: OP Height: 149.86 cm Weight: 77.11 kg BSA: 1.72 m2 Heart Rate: bpm BP: 124 / 70 mmHg Java Swing Developer: Referring MD: Benja Luo [facility] Polisher Apprentice: Lukas Brewer MD Symptoms: G45.9 - Transient cerebral ischemic attack, unspecified Study Quality: Adequate, Bubble done ECG Rhythm: Sinus Conclusions: - Essentially normal study Findings Left Ventricle Normal left ventricular size, thickness, and systolic function. The visually estimated ejection fraction is between 55-60%. Spectral Doppler is indicative of an impaired relaxation filling pattern. E/E prime ratio is <8, consistent with normal filling pressures. Evidence suggests grade I (mild) diastolic dysfunction. Right Ventricle Normal right ventricular cavity size and systolic function. Atria The left atrium is normal in size. There is no evidence of interatrial shunt by agitated saline. The right atrium is normal in size. Aortic Valve Normal aortic valve structure and function. There is no aortic valve stenosis. There is no aortic valve regurgitation. Mitral Valve Normal mitral valve structure and function. There is trace mitral valve regurgitation. There is no mitral valve stenosis. Pulmonic Valve The pulmonic valve was not well visualized. Tricuspid Valve Likely normal tricuspid valve structure and function. There is trace tricuspid valve regurgitation. The right ventricular systolic pressure is normal. The right ventricular systolic pressure is 12 mmHg. Normal right atrial pressure. There is no evidence of pulmonary hypertension. Great Vessels All visible segments of the aorta are normal in size. The pulmonary artery was not well visualized. Venous The inferior vena cava is normal in size and collapses greater than 50% with inspiration. Pericardium/Pleural There is no evidence of pericardial effusion. Prior Study Comparison No prior study available for comparison. Recommendations, Care & Conclusions Consider a LAWRENCE if clinically appropriate. Measurements 2D Linear Measurements IVSd: 1.30 0.6-0.9/0.6-1.0 cm LVIDd: 3.50 3.9-5.3/4.2-5.9 cm LVIDd Index: 2.03 2.4-3.2/2.2-3.1 cm/m2 LVIDs: 2.20 2.0-3.6 cm LVPWd: 1.20 0.7-1.1 cm Ao Root: 2.90 2.1-3.5 cm LA Diam: 3.00 2.7-3.8/3.0-4.0 cm LAIDs Index: 1.74 1.5-2.3 cm/m2 LV Mass: 180.05 67-162/88-224 g LV Mass Index: 104.68 43-95/49-115 g/m2 LVOT Diam: 1.90 3.0+(-)1.3 cm Mitral Valve MV Pk E: 0.75 MV PK A: 0.84 MV Decel Time: 245.00 E/A: 0.90 E'Lateral: 9.57 E'Medial: 6.20 E/E' Med: 12.10 E/E' Lat: 7.80 PHT: 72.00 MVA PHT: 3.06 Decel Bartholomew: 3.07 Aortic Valve AoV Pk Nirav: 1.08 AoV Mn Nirav: 0.80 AoV VTI: 0.23 AoV Pk Grad: 5.00 Aov Mn Grad: 3.00 MICHAEL Cont.VTI: 2.47 LVOT LVOT Pk Nirav: 0.92 LVOT Mn Nirav: 0.68 LVOT VTI: 0.20 LVOT Pk Grad: 3.00 LVOT Mn Grad: 2.00 LVOT Diam: 1.90 LVOT Area: 2.84 Diastolic Function MV Pk E: 0.75 MV Pk A: 0.84 E/A: 0.90 E'Medial: 6.20 E/E' Med: 12.10 E' Laterial: 9.57 E/E' Lat: 7.80 Right Ventricle TAPSE (mm): 30.00 TVS' Nirav: 13.00 Tricuspid Valve TR Pk Nirav: 1.48 TR Pk Grad: 9.00 RA Press: 3.00 RVSP: 12.00 Great Vessels Aorta Ao Root-2D: 2.90 2.0-3.7 cm Ao Asc: 3.10 2.1-3.4 cm Pulmonary Valve PV Pk Nirav: 1.18 Peak PV Grad: 6.00 Updated in Other Vendor System with Status of Final Lukas Brewer MD electronically signed on 03/02/2023 4:42:24 PM with status of Final
== END ==
LOC: HO.CARD 10:02
PROVIDERS: PCP Nurse Practitioner Family; Visit Provider Nurse Practitioner Family
DX: G45.9 Transient cerebral ischemic attack, unspecified (principal)
CPT/HCPCS: 93306

== ENCOUNTER → 2023-03-02 10:04 | Outpatient (BNV) | payer MEDICARE, MEDICAID, SELFPAY | PROVIDERS: PCP Nurse Practitioner Family; Visit Provider Internal Medicine Cardiovascular Disease | DX: G45.9 Transient cerebral ischemic attack, unspecified (principal) | CPT/HCPCS: 93306 ==

== ENCOUNTER 2023-03-08 08:46 | Outpatient (AMB) | payer MEDICARE, MEDICAID, SELFPAY ==
[2023-03-08 09:03] VITALS: BP 128/88; PULSE 79; O2SAT 98; BMI 35.5
--- NOTE | 2023-03-08 09:03 | MHC.PC.OV ---
Vital Signs 03/08/23 09:03 Height 4 ft 11 in Weight 176 lb BMI 35.5 BP 128/88 Blood Pressure Location Lt brachial Position Sitting Pulse 79 Pulse Source Pulse Oximeter Pulse Oximetry (%) 98 Oxygen Delivery Method Room Air Intake Visit Reasons: Annual PE/Secondary covers Intake Note: Pt is here today for her PE Allergies No Known Allergies Allergy (Verified 03/08/23 09:03) Tobacco use date assessed: 03/08/23 Dental Screening Dental Screen Date: 03/08/23 Did you have a dental visit in the last 12 months?: Yes Did you have a dental problem in the last 6 months where you did not have access to dental care?: No Was dental information given to patient?: Patient has dentist HPI Annual PE/Secondary covers HPI Details Pt is here for a PE. Will order labs. Mammo is up to date. Has a wood heel flap rubber. Pt has not heard from GI about scheduling her colon screen. Will contact GI office. Pt c/o bilat knee pain. She reports that it is difficult to go up the stairs due to pain. Will order XRs. Pt has a Hx of arthritis, denies any erythema or current swelling. refuses flu vaccine [facility] Medical History Arthritis of hip Back pain Chronic pain syndrome Depression with anxiety Disc degeneration, lumbar Essential hypertension External hemorrhoids with complication Hemorrhoid Mononeuropathy, unspecified Psoriasis Rectal or anal pain Restless leg syndrome Spondylosis of lumbosacral joint without myelopathy Truncal obesity Surgical History H/O hemorrhoidectomy History of partial hysterectomy Family History Mother Diabetes mellitus Essential hypertension Sister Diabetes mellitus Psoriasis Maternal Grandmother Breast cancer Social History Housing: Apartment Alcohol intake: never Patient Tobacco Use Status: Never used Tobacco e-Cigarette/Vaping Use: Never Used Second Hand Smoke Exposure: No service: No Current occupational status: unemployed Gender identity: Female Cognitive needs: No Hearing needs: No Vision needs: Yes Female Reproductive History Menstrual Age of Menarche: 11 Questionnaire Thrive Questionnaire Date Thrive assessed: 11/05/21 AUDIT C Alcohol Use Questionnaire (AUDIT-C) 1. How often do you have a drink containing alcohol?: Never Total Score: 0 GEE-7 AMB Questionnaire GEE-7 Date GEE - 7 assessed: 11/05/21 Source: Developed by Drs. Gaurang Avendano, Joseline Garcia, Glenroy Fonseca and colleagues, with an educational constantine from [employer]. Review of Systems Const Denies chills and Denies fever(s) Eyes Denies blurry vision ENT Denies vertigo, Denies dizziness and Denies sore throat Card Denies chest pain at rest, Denies chest pain with activity, Denies diaphoresis, Denies dyspnea and Denies dyspnea on exertion Resp Denies cough, Denies dyspnea, Denies dyspnea on exertion and Denies wheezing GI Denies abdominal pain, Denies melena, Denies hematochezia, Denies constipation, Denies diarrhea and Denies loose stools Denies hematuria Musc Denies numbness and Denies tingling Skin/Breast Denies lesions Neuro Denies vertigo, Denies dizziness, Denies numbness and Denies tingling Psych Denies anxiety, Denies depression, Denies homicidal ideation, Denies suicidal ideation and Denies other (substance abuse) Aller/Immun Denies wheezing Physical exam (Primary Care) Vital Signs: Last Vital Signs Pulse 79 03/08/23 09:03 BP 128/88 03/08/23 09:03 Pulse Ox 98 03/08/23 09:03 Oxygen Delivery Method Room Air 03/08/23 09:03 BMI result Body Mass Index 35.5 Tobacco/Smoking Status: Tobacco use Status Tobacco use date assessed 03/08/23 03/08/23 09:06 Patient Tobacco Use Status Never used Tobacco 03/08/23 09:06 e-Cigarette/Vaping Use Never Used 03/08/23 09:06 Thrive Assessment: Date of Thrive Assessment Date Thrive assessed 11/05/21 03/08/23 09:06 Const General: cooperative Nutritional Appearance: obese Orientation/consciousness: patient oriented x3 HENMT Head: Yes normal to inspection, Yes normocephalic and Yes atraumatic Ears: TM's normal bilaterally Eyes General: appearance normal, both eyes and all related structures Alignment and Position: alignment normal and position normal Neck Neck: Yes normal visual inspection and Yes no lymphadenopathy Thyroid: Thyroid normal Resp Effort & Inspection: normal respiratory effort Auscultation: clear to auscultation bilaterally Cardio Rate: regular rate Rhythm: regular rhythm Heart sounds: S1 normal heart sound present, S2 normal heart sound present and no murmurs GI Palpation (GI): Soft to palpation and nontender Auscultation: normal bowel sounds Skin Rashes: no rashes Neuro General: patient oriented x3, moves all extremities, no focal motor deficits and deep tendon reflexes 2+ bilaterally Romberg Test: Negative Extrem Other: slight crepitus noted with extension and flexion of bilat knees, - lachmans, - mcmurrays Psych Appearance: grossly normal Mental Status: mental status grossly normal Speech and movement: Normal speech and movement present Affect: normal affect Attitude: cooperative Thought process: Normal thought process present Thought content: Normal thought content present Insight: Good insight present (Psych) Judgement: Good judgement present (Psych) Assessment and Plan Assessment & Plan (1) Physical exam: Code(s): Z00.00 - Encounter for general adult medical examination without abnormal findings Plan: Labs ordered (2) Bilateral knee pain: Code(s): M25.561 - Pain in right knee; M25.562 - Pain in left knee Plan The patient agreed to the use of a territory sales manager medical for this encounter. Scribed for KATHRYN Manning by Nupur Clinton territory sales manager medical, on 03/08/2023 at 09:25 EST. Orders: Orders Complete Blood Count Auto Diff Today Z00.00 - Encounter for general adult medical examination without abnormal findings TSH reflex Free T4 Today Z00.00 - Encounter for general adult medical examination without abnormal findings UA CC w/rflx Micro + Cult Today Z00.00 - Encounter for general adult medical examination without abnormal findings XR knee LT 2V Today M25.561 - Pain in right knee, M25.562 - Pain in left knee XR knee RT 2V Today M25.561 - Pain in right knee, M25.562 - Pain in left knee Comprehensive Loving. Panel Fast Today Z00.00 - Encounter for general adult medical examination without abnormal findings Lipid Panel Today Z00.00 - Encounter for general adult medical examination without abnormal findings Coding Level of Care Code Est Pt Prev Care 40-64y(11619) Diagnoses Physical exam Z00.00 Bilateral knee pain M25.561; M25.562
== END 2023-03-08 09:41 | disposition home or self-care (01) ==
PROVIDERS: PCP Nurse Practitioner Family; Visit Provider Nurse Practitioner Family
DX: Z00.00 Encounter for general adult medical examination without abnormal findings (principal); M25.561 Pain in right knee; M25.562 Pain in left knee
CPT/HCPCS: 99396

== ENCOUNTER 2023-03-08 09:42 | Outpatient (REF) | payer MEDICARE, MEDICAID, SELFPAY ==
--- NOTE | ~2023-03-08 | XR_ITS ---
EXAMINATION: XR KNEE, BILATERAL CLINICAL INFORMATION: Pain. COMPARISON: None available. TECHNIQUE: 2 views of each knee. FINDINGS: RIGHT KNEE: Mild medial joint space narrowing with tiny medial marginal osteophytes. Trace joint effusion. Tiny posterior patellar osteophytes. LEFT KNEE: Mild medial joint space narrowing with tiny medial marginal osteophytes. No significant joint effusion. Tiny posterior patellar osteophytes. XR/XR knee RT 2V IMPRESSION: 1. Mild degenerative changes right knee. 2. Mild degenerative changes left knee.
--- NOTE | ~2023-03-08 | XR_ITS ---
EXAMINATION: XR KNEE, BILATERAL CLINICAL INFORMATION: Pain. COMPARISON: None available. TECHNIQUE: 2 views of each knee. FINDINGS: RIGHT KNEE: Mild medial joint space narrowing with tiny medial marginal osteophytes. Trace joint effusion. Tiny posterior patellar osteophytes. LEFT KNEE: Mild medial joint space narrowing with tiny medial marginal osteophytes. No significant joint effusion. Tiny posterior patellar osteophytes. XR/XR knee LT 2V IMPRESSION: 1. Mild degenerative changes right knee. 2. Mild degenerative changes left knee.
[2023-03-08 11:10] LABS: MANUAL DIFF FLAG NO
[2023-03-08 11:14] LABS: Basophils Percent Auto 0.4 % (0-2); Eosinophils Absolute Auto 0.1 X10*3/uL (0.0-0.4); Eosinophils Percent Auto 1.1 % (0-4); Hematocrit 42.4 % (37.0-47.0); Hemoglobin 14.3 g/dl (12.0-16.0); Imm Gran Abs Auto 0.04 X10*3/uL (0.00-0.03); Imm Gran Pct Auto 0.4 % (0.0-0.4); Lymphocytes Absolute Auto 2.2 X10*3/uL (1.2-4.9); Lymphocytes Percent Auto 22.4 % (20-40); Mean Corpuscular HGB Conc 33.7 g/dl (31.0-35.0); Mean Corpuscular Hemoglobin 30.3 pg (27.0-33.0); Mean Corpuscular Volume 89.8 fL (80.0-98.0); Mean Platelet Volume 9.6 fL (9.4-12.3); Monocytes Absolute Auto 0.5 X10*3/uL (0.1-1.2); Monocytes Percent Auto 5.3 % (2-11); Neutrophils Percent Auto 70.4 % (45-73); Platelet Count 288 X10*3/uL (160-400); Red Blood Count 4.72 X10*6/uL (4.20-5.50); Red Cell Distribution Width 12.5 % (11.0-16.0)
[2023-03-08 11:41] LABS: Alanine Aminotransferase 16 U/L (0-31); Albumin Level 3.9 g/dL (3.5-5.0); Alkaline Phosphatase 69 U/L (39-117); Anion Gap 13 (12-20); Aspartate Amino Transferase 16 U/L (5-31); Bilirubin Total 0.4 mg/dL (0.0-1.0); Blood Urea Nitrogen 13 mg/dL (9-16); Calcium 9.2 mg/dL (8.4-10.2); Carbon Dioxide 26 mmol/L (22-29); Chloride 105 mmol/L (96-108); Cholesterol 172 mg/dL (<200); Estimated Glomerular Filt Rate > 60; Glucose Fasting 92 mg/dL (60-99); HDL Cholesterol 49 mg/dL (>40); LDL Cholesterol Calculated 109 mg/dL (<100); Potassium 3.8 mmol/L (3.3-5.1); Sodium 140 mmol/L (135-145); Total Protein 6.8 g/dL (6.5-8.0); Triglycerides 71 mg/dL (<150)
[2023-03-08 11:56] LABS: TSH reflex Free T4 0.81 uIU/mL (0.32-4.0)
[2023-03-08 13:24] LABS: Appearance Urine Clear; Color Urine Yellow; Glucose Urine UA Negative (Negative); Leukocyte Esterase Urine Small (1+) (Negative); Nitrite Urine Negative (Negative); PH 6.5 (5.0-9.0); UMIC TRIGGER UACC YES; Urine Blood Negative (Negative); Urine Ketones Negative (Negative); Urine Protein Negative (Neg-Trace)
[2023-03-08 15:07] LABS: Bacteria Urine None Seen (None Seen); Hyaline Casts Urine 0-2 /LPF (0-2); RBC Urine 0-2 /HPF (0-2); UACC Culture Trigger YES; WBC Urine 0-5 /HPF (0-5)
== END 2023-03-08 09:43 | disposition home or self-care (01) ==
LOC: HO.HMGCX 09:42
PROVIDERS: PCP Nurse Practitioner Family; Visit Provider Nurse Practitioner Family
DX: Z00.00 Encounter for general adult medical examination without abnormal findings (principal); M25.561 Pain in right knee; M25.562 Pain in left knee; R82.90 Unspecified abnormal findings in urine; I10 Essential (primary) hypertension; G45.9 Transient cerebral ischemic attack, unspecified
CPT/HCPCS: 36415; 73560; 80053; 80061; 81001; 84443; 85025; 87086

== ENCOUNTER 2023-04-05 13:55 | Outpatient (AMB) | payer MEDICARE, MEDICAID, SELFPAY ==
--- NOTE | 2023-04-05 13:58 | MHC.OFFVIS ---
Intake Vital Signs 04/05/23 14:01 Height 4 ft 11 in Weight 176 lb BMI 35.5 BP 126/76 Intake Visit Reasons: cut in vaginal area Cathodic Protection Technician Required: No Information Interpreted: non-clinical & clinical Computer Hardware Engineer: Computer Hardware Engineer Present (Mayuri) Allergies No Known Allergies Allergy (Verified 04/05/23 14:01) Is last menstrual period known: No Post menopausal: No Patient : No HPI HPI Comments History of Present Illness Details Presenting complaining of a periclitoral ulcer that is tender over the last week and half , no other associated symptoms, no vaginal discharge or any other concerns [facility]LY [facility] Medical History Spondylosis of lumbosacral joint without myelopathy Disc degeneration, lumbar Arthritis of hip Chronic pain syndrome Truncal obesity Mononeuropathy, unspecified Back pain External hemorrhoids with complication Depression with anxiety Psoriasis Restless leg syndrome Essential hypertension Rectal or anal pain Hemorrhoid Surgical History H/O hemorrhoidectomy History of partial hysterectomy Family History Mother Diabetes mellitus Essential hypertension Sister Diabetes mellitus Psoriasis Maternal Grandmother Breast cancer Social History Housing: Apartment Alcohol intake: never Patient Tobacco Use Status: Never used Tobacco e-Cigarette/Vaping Use: Never Used Second Hand Smoke Exposure: No Patient : No service: No Current occupational status: unemployed Gender identity: Female Cognitive needs: No Hearing needs: No Vision needs: Yes Female Reproductive History Menstrual Age of Menarche: 11 control method: permanent sterilization Date of last pap smear: 02/19/21 (negative) Review of Systems Const All systems reviewed & are unremarkable except as noted in HPI and below Physical Exam Vital Signs: Last Vital Signs BP 126/76 04/05/23 14:01 BMI result Body Mass Index 35.5 General: Yes no CVA tenderness External Female Exam: normal appearance of the urethra and other (Periclitoral tender ulcer) Speculum Exam - Vagina: normal appearance of the vagina, normal palpation, no lesions and no masses Speculum Exam - Cervix: normal appearance of the cervix, normal palpation, no lesions, no masses and nontender Bimanual exam- vagina & uterus: normal bimanual exam, normal palpation, uterine size normal, normal palpation, uterine shape normal, No Cervical tenderness present and non-tender Bimanual Exam- Adnexa, other: normal adnexae Back/Spine/Pelvis Back: no CVA tenderness Assessment & Plan Assessment & Plan (1) Vulvar ulcer: Comment: Rule out Herpes Code(s): N76.6 - Ulceration of vulva Plan: Discussed with the patient the findings on physical exam, diagnosis being suspicious for herpes and the mode of transmission. Will rule out other STDs including RPR, hep B and C, HIV, GC and chlamydia and Trichomonas. Valtrex Prescription 1 g p.o. b.i.d. for 10 days for initial outbreak was sent to the patient pharmacy, follow-up in 2 weeks for re-evaluation, if the ulcer does not heal by then will consider vulvar biopsy. all questions answered patient verbalized understanding. Orders: Orders HIV Ab/Ag Today Z20.2 - Contact with and (suspected) exposure to infections with a predominantly sexual mode of transmission Hepatitis B Surface Antigen Today Z20.2 - Contact with and (suspected) exposure to infections with a predominantly sexual mode of transmission Hepatitis C Antibody Today Z20.2 - Contact with and (suspected) exposure to infections with a predominantly sexual mode of transmission Syphilis Screen Today Z20.2 - Contact with and (suspected) exposure to infections with a predominantly sexual mode of transmission Medications: New valacyclovir (Valtrex) 1,000 mg PO BID 20 tabs 0RF 10 days Coding Level of Care Code Est Pt Level 3 (46201) Diagnoses Vulvar ulcer N76.6
[2023-04-05 14:01] VITALS: BP 126/76; BMI 35.5
== END 2023-04-05 15:16 | disposition home or self-care (01) ==
LOC: HO.HWS 13:55
PROVIDERS: PCP Nurse Practitioner Family; Visit Provider Obstetrics & Gynecology
DX: N76.6 Ulceration of vulva (principal)
CPT/HCPCS: 99213

== ENCOUNTER 2023-04-05 13:55 | Outpatient (REF) | payer MEDICARE, MEDICAID, SELFPAY ==
[2023-04-05 17:21] LABS: CT PCR NOT DETECTED (Not Detect.); NG PCR NOT DETECTED (Not Detect.)
[2023-04-06 08:18] LABS: Syphilis Screen Nonreactive (Nonreactive)
[2023-04-06 08:29] LABS: HBsAGNum1 0.37 S/CO (0.00-0.99); HIV AB/AG Nonreactive (Nonreactive); HIV Num 1 0.05 S/CO (0.00-0.99); Hepatitis B Surface Antigen Negative (Negative); ~HepC Num1 0.11 S/CO (0.00-0.79); ~Hepatitis C Antibody Nonreactive (Nonreactive)
[2023-04-06 13:21] LABS: BV Int Neg Control Negative (Negative); BV Int Pos Control Positive (Positive)
== END 2023-04-05 13:56 | disposition home or self-care (01) ==
LOC: HO.LAB 13:55
PROVIDERS: PCP Nurse Practitioner Family; Visit Provider Obstetrics & Gynecology
DX: Z11.4 Encounter for screening for human immunodeficiency virus [HIV] (principal); N76.6 Ulceration of vulva; Z20.2 Contact with and (suspected) exposure to infections with a predominantly sexual mode of transmission; Z11.59 Encounter for screening for other viral diseases; Z72.89 Other problems related to lifestyle
CPT/HCPCS: 0353U; 86780; 86803; 87255; 87340; 87389; 87480; 87510; 87660; 99212

== ENCOUNTER 2023-05-19 08:48 | Outpatient (AMB) | payer MEDICARE, MEDICAID, SELFPAY ==
--- NOTE | 2023-05-19 08:52 | A.OFFVIS_ITS ---
Intake Vital Signs 05/19/23 08:56 Height 4 ft 11 in Weight 174 lb 6 oz BMI 35.2 BP 128/84 Blood Pressure Location Lt brachial Position Sitting Respiration 16 Pulse 76 Pulse Source Pulse Oximeter Pulse Oximetry (%) 96 Oxygen Delivery Method Room Air Intake Visit Reasons: Follow Up/Back Pain/Confirmed Intake Note: Patient comes in for a follow up appointment. Allergies No Known Allergies Allergy (Verified 05/19/23 08:56) HPI HPI Comments History of Present Illness Details Ms. Sanches presents today with complains on pain return. Of this t sachin she states that the this is a different pain which is not resembling the pain she previously had. She reports pain not in the lower back but rather in the projection of the left iliac crest. There is a tenderness on palpation slightly below the left iliac crest. Codey test is negative on the left. Loading test is positive still on the left. Gaenslen test and the Stinchfield tests are negative on the left. Unlikely this pain is coming from left sacroiliac joint. Small possibility exists that it is cluneal nerve and traction pain. This patient has body mass index of 35.0 kg/meter sq. Nevertheless I would consider that her pain is still coming from the same facet joints on the left since the patient still reports the pain slightly exacerbated by loading test on the left. We will agree that I will schedule her for the repeat of the Sprint L5 the left procedure. If this will not help her pain we will discuss this again. Some vertebra geniculate him a at L5-S1 exist on MRI dated at 20:21. She p reports increase of the pain with prolonged sitting. Vertebrogenic pain will be discussed if sprint procedure will not help this patient. Left L5 Sprint PNS on 09/16/22 inserted. Side effects: itching and tenderness in her Sprint dressing site. PRIOR: Ms. Sanches is very pleasant and very nice 44 years old female who is in my office today status post insertion of left L5 sprint PNS.? She received this procedure? on 01/26/2022 and she reported very good pain relief after the procedure.? She reported better mobility better activities of daily living and better social interactions. It looks like that her pain is starting to come back although in somewhat unusual way.? She reports pain in the projection of the sacroiliac joint with radiation to the left hip however the Codey test is negative, the pelvis compression test is negative, the Stinchfield test is negative and this does not give me in impression that she has sacroiliitis.? Most likely she is suffering from the same problem as it was before.? It has been 8 month since the PNS insertion.? We can repeat this procedure for her in the operating room. Results of L2-L3 L4 dorsal ramus L5 medial branch block which was performed on 12/15/2021.? The patient reports pain relief after the injection for up to 6 hours.? She reports that her pain from level of 7-9 went initially down to 2 out of 10 and 3/10 for the 1st-3 hours after the injection and after that it slowly went back to 4-5 and eventually to 6 on a 6 hour after the injection.? This corresponds to longevity y of the ropivacaine injection action. Prior: complains on lower back pain mostly on the left side with radiation into the left lower extremity.? She is the patient with long history of lower back pain.? She is under observation in my office for more than a year .? She had diagnostic medial branch block on the left which with the a resulting in some pain relief and after that she went for radiofrequency ablation of L4-5 medial branch blocks on the left.? She reported that the procedure was working for only 1 or 2 weeks.? Is supposed to work for at least 6 months.? 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 L5-S1 Bilateral transforaminal epidural steroid injection helped significantly for the pain radiating to the left lower extremity.? However pain on the lateral side of the left lumbar spine remain.? She completed physical therapy less than 1 year ago.? She tried NSAIDs and muscle relaxants to treat her pain with no effect.. FOR[facility] Medical History Spondylosis of lumbosacral joint without myelopathy Disc degeneration, lumbar Arthritis of hip Chronic pain syndrome Truncal obesity Mononeuropathy, unspecified Back pain External hemorrhoids with complication Depression with anxiety Psoriasis Restless leg syndrome Essential hypertension Rectal or anal pain Hemorrhoid Surgical History H/O hemorrhoidectomy History of partial hysterectomy Family History Mother Diabetes mellitus Essential hypertension Sister Diabetes mellitus Psoriasis Maternal Grandmother Breast cancer Social History Housing: Apartment Alcohol intake: never Patient Tobacco Use Status: Never used Tobacco e-Cigarette/Vaping Use: Never Used Second Hand Smoke Exposure: No service: No Current occupational status: unemployed Gender identity: Female Cognitive needs: No Hearing needs: No Vision needs: Yes Female Reproductive History Menstrual Age of Menarche: 11 Review of Systems Const All systems reviewed & are unremarkable except as noted in HPI and below ENT Reports Normal hearing present Neuro Reports Normal hearing present, Denies confusion and Denies Sensory deficit (Neuro) Psych Denies confusion Physical Exam Vital Signs: Last Vital Signs Pulse 76 05/19/23 08:56 Resp 16 05/19/23 08:56 BP 128/84 05/19/23 08:56 Pulse Ox 96 05/19/23 08:56 Oxygen Delivery Method Room Air 05/19/23 08:56 BMI result Body Mass Index 35.2 Const General: No confusion Orientation/consciousness: No confusion Eyes Pupils: Equal, round and reactive pupils present EOM: EOMs intact bilaterally Chest Chest palpation & inspection: normal inspection of the chest Resp Effort & Inspection: normal respiratory effort, able to speak in complete sentences, normal respiratory pattern, no audible wheezes and no cough Cardio Jugular venous distension: no JVD Back/Spine/Pelvis Other: Flexing forward is making her pain worse. No discomfort on lateral rotation of the hip or medial rotation of the hip. Codey test is negative on the left Stinchfield test is negative on the left pelvis compression test is negative on the left , Sheyla finger test rather negative on the left and most of the tenderness on palpation is in projection of the to cm below iliac crest in the top of the crest projection. The loading test is positive on the left. Neuro General: No confusion Cranial nerves: Yes Equal, round and reactive pupils present and Yes Normal hearing present Sensory Exam: No Sensory deficit (Neuro) Psych Speech and movement: Normal speech and movement present Affect: normal affect Attitude: cooperative Thought process: Normal thought process present Thought content: Normal thought content present Insight: Good insight present (Psych) Judgement: Good judgement present (Psych) Assessment & Plan Assessment & Plan (1) Disc degeneration, lumbar: Code(s): M51.36 - Other intervertebral disc degeneration, lumbar region (2) Spondylosis of lumbar region without myelopathy or radiculopathy: Code(s): M47.816 - Spondylosis without myelopathy or radiculopathy, lumbar region (3) Chronic pain syndrome: Code(s): G89.4 - Chronic pain syndrome Plan Excellent results of sprint PNS, now she comes with exacerbation of the pain again although she states that the pain has different pattern. I still believe after physical exam as above that her pain is coming from the left lower facet joints of the lumbar spine. Will schedule her again for PNS Sprint L5 on the left. I also examined her MRI and on the MRI there was some Modic type changes at L5- S1 interval. Prolong sitting and flexing forward she reports being painful. If sprint will not work I will schedule her for new MRI to evaluate Modic type changes in lumbar spine again. Patient Instructions: I here by testify that I spent 32 minutes in conversation with this patient as well as examine her prior records and images and preparing this note. Coding Level of Care Code Est Pt Level 4 (80475) Diagnoses Disc degeneration, lumbar M51.36 Spondylosis of lumbar region without myelopathy or radiculopathy M47.816 Chronic pain syndrome G89.4
[2023-05-19 08:56] VITALS: BP 128/84; PULSE 76; RESP 16; O2SAT 96; BMI 35.2
== END 2023-05-19 09:12 | disposition home or self-care (01) ==
PROVIDERS: PCP Nurse Practitioner Family; Visit Provider Anesthesiology
DX: G89.4 Chronic pain syndrome (principal); M51.36 Other intervertebral disc degeneration, lumbar region; M47.816 Spondylosis without myelopathy or radiculopathy, lumbar region
CPT/HCPCS: 99214

== ENCOUNTER → 2023-05-19 08:48 | Outpatient (BNVA) | payer MEDICARE, MEDICAID, SELFPAY | PROVIDERS: PCP Nurse Practitioner Family; Visit Provider Anesthesiology | DX: M51.36 Other intervertebral disc degeneration, lumbar region (principal); M47.816 Spondylosis without myelopathy or radiculopathy, lumbar region; G89.4 Chronic pain syndrome | CPT/HCPCS: 99212 ==

== ENCOUNTER 2023-06-14 06:16 | Outpatient (REF) | payer MEDICARE, MEDICAID, SELFPAY ==
--- NOTE | ~2023-06-14 | FL_ITS ---
EXAMINATION: XR FLUOROSCOPY WITH IMAGES CLINICAL INFORMATION: Spondylosis without myelopathy or radiculopathy, lumbar region COMPARISON: Fluoroscopic guidance 12/15/2021 TECHNIQUE: Fluoroscopy Supervised By: Dr. Lord. Fluoroscopy Time: 0.1 minute. Cumulative Dose: 1.44 mGy. DAP: 0.0251 Gycm2. Images: 2. FINDINGS: On the first images, the tip of a needle with attached tubing projects over the L5 vertebral body. On the second image, finding wire projects over the L4 and L5 vertebral bodies. FL/FL guidance in treatment room IMPRESSION: Imaging assistance provided during a fluoroscopic procedure.
== END 2023-06-14 06:17 | disposition home or self-care (01) ==
LOC: CF 06:16
PROVIDERS: Visit Provider Anesthesiology
DX: M47.816 Spondylosis without myelopathy or radiculopathy, lumbar region (principal)
CPT/HCPCS: 64455

== ENCOUNTER 2023-06-14 14:32 | Outpatient (AMB) | payer MEDICARE, MEDICAID, SELFPAY ==
--- NOTE | 2023-06-14 14:44 | MHC.OFFVIS ---
Intake Vital Signs 06/14/23 15:27 06/14/23 15:27 Height 4 ft 11 in 4 ft 11 in Weight 174 lb 174 lb BMI 35.1 35.1 BP 159/70 H 154/88 H Blood Pressure Location Lt brachial Lt brachial Position Sitting Sitting Respiration 16 16 Pulse 91 71 Pulse Source Pulse Oximeter Pulse Oximeter Pulse Oximetry (%) 99 99 Oxygen Delivery Method Room Air Room Air Comment pre-op post-op Intake Visit Reasons: Left L5 MB Sprint PNS TRIAL Allergies No Known Allergies Allergy (Verified 06/14/23 15:33) [facility] Medical History (Updated 06/14/23 @ 10:25 by Juana Tam RN) Spondylosis of lumbosacral joint without myelopathy Disc degeneration, lumbar Arthritis of hip Chronic pain syndrome Truncal obesity Mononeuropathy, unspecified Back pain Depression with anxiety Psoriasis Restless leg syndrome Essential hypertension Rectal or anal pain Hemorrhoid Surgical History (Updated 06/14/23 @ 10:32 by Juana Tam RN) S/P placement of nerve stimulator H/O hemorrhoidectomy History of partial hysterectomy Family History Mother Diabetes mellitus Essential hypertension Sister Diabetes mellitus Psoriasis Maternal Grandmother Breast cancer Social History Housing: Apartment Alcohol intake: never Patient Tobacco Use Status: Never used Tobacco e-Cigarette/Vaping Use: Never Used Second Hand Smoke Exposure: No service: No Current occupational status: unemployed Gender identity: Female Cognitive needs: No Hearing needs: No Vision needs: Yes Female Reproductive History Menstrual Age of Menarche: 11 Physical Exam Vital Signs: Last Vital Signs Pulse 71 06/14/23 15:27 Resp 16 06/14/23 15:27 BP 154/88 H 06/14/23 15:27 Pulse Ox 99 06/14/23 15:27 Oxygen Delivery Method Room Air 06/14/23 15:27 BMI result Body Mass Index 35.1 Assessment & Plan Assessment & Plan (1) Spondylosis of lumbar region without myelopathy or radiculopathy: Code(s): M47.816 - Spondylosis without myelopathy or radiculopathy, lumbar region Plan SPRINT L5 Left PNS. Percutaneous implantation of peripheral nerve stimulation Sprint system. After the risks, benefits and alternatives were discussed with the patient and informed consent was obtained, patient was placed in the prone position and padded to foster comfort. Time out was performed delineating correct site and side of the procedure , name and of the patient, patient participated in time out procedure. Sterily draped C-arm was brought over the operating field and clear picture of the L5 lamina on the right was delineated on the screen. The upper central portion of the lamina was chosen as a target of the needle tip insertion . After identifying and marking the intended target, the skin around the planned entry point and the subcutaneous tissues were injected with local anesthetic forming skin wheal.. A percutaneous sleeve and stimulating probe lead introduction system were assembled, inserted and advanced through the skin wheal to the point of interest under C-arm view in tunnel vision fashion, the introducer needle was delivered to a location in proximity to the nerve. Multiple stimulation parameters were used to deliver stimulation to the nerve in concert with stimulating at multiple positions around the nerve. nerve target acquisition was confirmed noting generation of in the corresponding to the nerve being stimulated. Various electrical parameter combinations were tested, and the lead location was adjusted (physically relocated) until the patient indicated overlapping the distribution of the patient?s typical region of pain. The stimulating probe was removed from the introducer and a percutaneous lead was guided through the needle and delivered to a location in similar proximity to the nerve. Final location was verified with electrical stimulation. The introducer needle was removed, and the exposed end of the percutaneous lead was attached to an external stimulator unit. At the end of the case various electrical parameter combinations were again tested until the patient indicated paresthesia or muscle tension overlapping the distribution of the patient?s typical region of pain. After confirming that lead impedance was in the normal range, the external unit was detached, the needle was removed, and the lead was anchored at the skin. The lead was threaded into the connector block and electrical continuity and desired patient response was confirmed. The connector block was attached to the external stimulator unit. The site was covered with a sterile occlusive dressing and a image was taken to document final placement. Upon completion of the procedure the patient was taken outside the OR where she recovered uneventfully she went home without immediate complications Orders: Orders FL guidance in treatment room Today M47.816 - Spondylosis without myelopathy or radiculopathy, lumbar region AMB Sprint PNS Today M47.816 - Spondylosis without myelopathy or radiculopathy, lumbar region Medications: New lidocaine (PF) 5 mL subcut ONCE 5 mL 0RF M47.816 - Spondylosis without myelopathy or radiculopathy, lumbar region Coding Level of Care Code Procedure Only Diagnoses Spondylosis of lumbar region without myelopathy or radiculopathy M47.816
[2023-06-14 15:27] VITALS: BP 154/88; BP 159/70; PULSE 71; PULSE 91; RESP 16; O2SAT 99; BMI 35.1
== END 2023-06-14 15:16 | disposition home or self-care (01) ==
LOC: HO.PMCPRC 14:32
PROVIDERS: PCP Nurse Practitioner Family; Visit Provider Anesthesiology
DX: M47.816 Spondylosis without myelopathy or radiculopathy, lumbar region (principal)
CPT/HCPCS: 64455; 64555

== ENCOUNTER 2023-06-23 09:29 | Outpatient (AMB) | payer MEDICARE, MEDICAID, SELFPAY ==
--- NOTE | 2023-06-23 09:58 | MHC.OFFVIS ---
Intake Vital Signs 06/23/23 10:09 Height 4 ft 11 in Weight 174 lb BMI 35.1 BP 130/92 H Blood Pressure Location Lt brachial Position Sitting Respiration 16 Pulse 72 Pulse Source Pulse Oximeter Pulse Oximetry (%) 97 Oxygen Delivery Method Room Air Intake Visit Reasons: LEFT L5 SPRINT/confirmed Intake Note: Patient came in for post-op appointment left L5 Sprint week 1. Reports pain 0/10. No redness/drng/swelling at site.? Site cleaned with alcohol prep pad, and new dsd/tega applied. Allergies No Known Allergies Allergy (Verified 06/23/23 10:09) HPI HPI Comments History of Present Illness Details Ms. Sanches is back in my office after insertion of the sprint PNS on 06/14/2023. She reports absence of pain. She reports excellent mobility excellent activities of daily living excellent social interactions. She is scheduled for right-sided procedure on 07/05/2023. Patient is very eager to go for this procedure because she ?wants to make sure that my pains are well managed. ? If this will not help her pain we will discuss this again. Some vertebra geniculate him a at L5-S1 exist on MRI dated at 20:21. She p reports increase of the pain with prolonged sitting. Vertebrogenic pain will be discussed if sprint procedure will not help this patient. Left L5 Sprint PNS on 09/16/22 inserted. Side effects: itching and tenderness in her Sprint dressing site. PRIOR: Ms. Sanches is very pleasant and very nice 44 years old female who is in my office today status post insertion of left L5 sprint PNS.? She received this procedure? on 01/26/2022 and she reported very good pain relief after the procedure.? She reported better mobility better activities of daily living and better social interactions. It looks like that her pain is starting to come back although in somewhat unusual way.? She reports pain in the projection of the sacroiliac joint with radiation to the left hip however the Codey test is negative, the pelvis compression test is negative, the Stinchfield test is negative and this does not give me in impression that she has sacroiliitis.? Most likely she is suffering from the same problem as it was before.? It has been 8 month since the PNS insertion.? We can repeat this procedure for her in the operating room. Results of L2-L3 L4 dorsal ramus L5 medial branch block which was performed on 12/15/2021.? The patient reports pain relief after the injection for up to 6 hours.? She reports that her pain from level of 7-9 went initially down to 2 out of 10 and 3/10 for the 1st-3 hours after the injection and after that it slowly went back to 4-5 and eventually to 6 on a 6 hour after the injection.? This corresponds to longevity y of the ropivacaine injection action. Prior: complains on lower back pain mostly on the left side with radiation into the left lower extremity.? She is the patient with long history of lower back pain.? She is under observation in my office for more than a year .? She had diagnostic medial branch block on the left which with the a resulting in some pain relief and after that she went for radiofrequency ablation of L4-5 medial branch blocks on the left.? She reported that the procedure was working for only 1 or 2 weeks.? Is supposed to work for at least 6 months.? 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 L5-S1 Bilateral transforaminal epidural steroid injection helped significantly for the pain radiating to the left lower extremity.? However pain on the lateral side of the left lumbar spine remain.? She completed physical therapy less than 1 year ago.? She tried NSAIDs and muscle relaxants to treat her pain with no effect.. [facility] Medical History (Updated 06/14/23 @ 10:25 by Juana Tam RN) Spondylosis of lumbosacral joint without myelopathy Disc degeneration, lumbar Arthritis of hip Chronic pain syndrome Truncal obesity Mononeuropathy, unspecified Back pain Depression with anxiety Psoriasis Restless leg syndrome Essential hypertension Rectal or anal pain Hemorrhoid Surgical History (Updated 06/14/23 @ 10:32 by Juana Tam RN) S/P placement of nerve stimulator H/O hemorrhoidectomy History of partial hysterectomy Family History Mother Diabetes mellitus Essential hypertension Sister Diabetes mellitus Psoriasis Maternal Grandmother Breast cancer Social History Housing: Apartment Alcohol intake: never Patient Tobacco Use Status: Never used Tobacco e-Cigarette/Vaping Use: Never Used Second Hand Smoke Exposure: No service: No Current occupational status: unemployed Gender identity: Female Cognitive needs: No Hearing needs: No Vision needs: Yes Female Reproductive History Menstrual Age of Menarche: 11 Review of Systems Const All systems reviewed & are unremarkable except as noted in HPI and below ENT Reports Normal hearing present Neuro Reports Normal hearing present, Denies confusion and Denies Sensory deficit (Neuro) Psych Denies confusion Physical Exam Vital Signs: Last Vital Signs Pulse 72 06/23/23 10:09 Resp 16 06/23/23 10:09 BP 130/92 H 06/23/23 10:09 Pulse Ox 97 06/23/23 10:09 Oxygen Delivery Method Room Air 06/23/23 10:09 BMI result Body Mass Index 35.1 Const General: No confusion Orientation/consciousness: No confusion Eyes Pupils: Equal, round and reactive pupils present EOM: EOMs intact bilaterally Chest Chest palpation & inspection: normal inspection of the chest Resp Effort & Inspection: normal respiratory effort, able to speak in complete sentences, normal respiratory pattern, no audible wheezes and no cough Cardio Jugular venous distension: no JVD Back/Spine/Pelvis Other: Flexing forward is making her pain worse. No discomfort on lateral rotation of the hip or medial rotation of the hip. Codey test is negative on the left Stinchfield test is negative on the left pelvis compression test is negative on the left , Sheyla finger test rather negative on the left and most of the tenderness on palpation is in projection of the to cm below iliac crest in the top of the crest projection. The loading test is positive on the left. Neuro General: No confusion Cranial nerves: Yes Equal, round and reactive pupils present and Yes Normal hearing present Sensory Exam: No Sensory deficit (Neuro) Psych Speech and movement: Normal speech and movement present Affect: normal affect Attitude: cooperative Thought process: Normal thought process present Thought content: Normal thought content present Insight: Good insight present (Psych) Judgement: Good judgement present (Psych) Assessment & Plan Assessment & Plan (1) Disc degeneration, lumbar: Code(s): M51.36 - Other intervertebral disc degeneration, lumbar region (2) Spondylosis of lumbar region without myelopathy or radiculopathy: Code(s): M47.816 - Spondylosis without myelopathy or radiculopathy, lumbar region (3) Chronic pain syndrome: Code(s): G89.4 - Chronic pain syndrome Plan Excellent results of sprint PNS, left-sided inserted PNS reported very good pain control. She wants to proceed on 07/05/2023 4 the right-sided completion of the procedure. On the MRI there was some Modic type changes at L5-S1 interval. Prolong sitting and flexing forward she reports being painful. If sprint will not work I will schedule her for new MRI to evaluate Modic type changes in lumbar spine again. Coding Level of Care Code Est Pt Level 3 (09103) Diagnoses Disc degeneration, lumbar M51.36 Spondylosis of lumbar region without myelopathy or radiculopathy M47.816 Chronic pain syndrome G89.4
[2023-06-23 10:09] VITALS: BP 130/92; PULSE 72; RESP 16; O2SAT 97; BMI 35.1
== END 2023-06-23 10:16 | disposition home or self-care (01) ==
PROVIDERS: PCP Nurse Practitioner Family; Visit Provider Anesthesiology
DX: M51.36 Other intervertebral disc degeneration, lumbar region (principal); M47.816 Spondylosis without myelopathy or radiculopathy, lumbar region; G89.4 Chronic pain syndrome
CPT/HCPCS: 99213

== ENCOUNTER → 2023-06-23 09:29 | Outpatient (BNVA) | payer MEDICARE, MEDICAID, SELFPAY | PROVIDERS: PCP Nurse Practitioner Family; Visit Provider Anesthesiology | DX: M51.36 Other intervertebral disc degeneration, lumbar region (principal); M47.816 Spondylosis without myelopathy or radiculopathy, lumbar region; G89.4 Chronic pain syndrome | CPT/HCPCS: 99212 ==

== ENCOUNTER 2023-07-05 06:34 | Outpatient (REF) | payer MEDICARE, MEDICAID, SELFPAY ==
--- NOTE | ~2023-07-05 | FL_ITS ---
EXAMINATION: XR FLUOROSCOPY WITH IMAGES CLINICAL INFORMATION: Spondylosis without myelopathy COMPARISON: 06/14/2023 TECHNIQUE: Fluoroscopy Supervised By: Dr. Lord. Fluoroscopy Time: 0.1 min Cumulative Dose: 4.05 mGy. DAP: 0.07 mGym2. Images: 2. FL/FL guidance in treatment room FINDINGS AND IMPRESSION: The markings on the saved images suggest placement of a needle over the right side of the spine, needle tip at L4-L5 level with subsequent image obtained after deployment of a catheter with its tip projecting over the spine medial to the level of the L5 pedicle.
== END 2023-07-05 06:35 | disposition home or self-care (01) ==
LOC: CF 06:34
PROVIDERS: Visit Provider Anesthesiology
DX: M47.816 Spondylosis without myelopathy or radiculopathy, lumbar region (principal)
CPT/HCPCS: 64555; C1778

== ENCOUNTER 2023-07-05 12:34 | Outpatient (AMB) | payer MEDICARE, MEDICAID, SELFPAY ==
--- NOTE | 2023-07-05 12:58 | MHC.OFFVIS ---
Intake Vital Signs 07/05/23 12:59 07/05/23 13:31 Height 4 ft 11 in 4 ft 11 in Weight 170 lb 170 lb BMI 34.3 34.3 BP 122/78 128/70 Blood Pressure Location Lt brachial Lt brachial Position Sitting Sitting Respiration 16 16 Pulse 81 71 Pulse Source Pulse Oximeter Pulse Oximeter Pulse Oximetry (%) 98 98 Oxygen Delivery Method Room Air Room Air Comment Pre-op Post-Op Intake Visit Reasons: RIGHT L5 MB SPRINT PNS TRIAL Supervisor Blast Furnace Required: No Accompanied by: Self / Same As Patient Allergies No Known Allergies Allergy (Verified 07/05/23 13:08) [facility] Medical History (Updated 06/14/23 @ 10:25 by Juana Tam RN) Spondylosis of lumbosacral joint without myelopathy Disc degeneration, lumbar Arthritis of hip Chronic pain syndrome Truncal obesity Mononeuropathy, unspecified Back pain Depression with anxiety Psoriasis Restless leg syndrome Essential hypertension Rectal or anal pain Hemorrhoid Surgical History (Updated 06/14/23 @ 10:32 by Juana Tam RN) S/P placement of nerve stimulator H/O hemorrhoidectomy History of partial hysterectomy Family History Mother Diabetes mellitus Essential hypertension Sister Diabetes mellitus Psoriasis Maternal Grandmother Breast cancer Social History Housing: Apartment Alcohol intake: never Patient Tobacco Use Status: Never used Tobacco e-Cigarette/Vaping Use: Never Used Second Hand Smoke Exposure: No service: No Current occupational status: unemployed Gender identity: Female Cognitive needs: No Hearing needs: No Vision needs: Yes Female Reproductive History Menstrual Age of Menarche: 11 Physical Exam Vital Signs: Last Vital Signs Pulse 71 07/05/23 13:31 Resp 16 07/05/23 13:31 BP 128/70 07/05/23 13:31 Pulse Ox 98 07/05/23 13:31 Oxygen Delivery Method Room Air 07/05/23 13:31 BMI result Body Mass Index 34.3 Assessment & Plan Assessment & Plan (1) Spondylosis of lumbar region without myelopathy or radiculopathy: Code(s): M47.816 - Spondylosis without myelopathy or radiculopathy, lumbar region Plan SPRINT L5 right PNS. Completion of the procedure. Percutaneous implantation of peripheral nerve stimulation Sprint system. After the risks, benefits and alternatives were discussed with the patient and informed consent was obtained, patient was placed in the prone position and padded to foster comfort. Time out was performed delineating correct site and side of the procedure , name and of the patient, patient participated in time out procedure. Sterily draped C-arm was brought over the operating field and clear picture of the L5 lamina on the right was delineated on the screen. The upper central portion of the lamina was chosen as a target of the needle tip insertion . After identifying and marking the intended target, the skin around the planned entry point and the subcutaneous tissues were injected with local anesthetic forming skin wheal.. A percutaneous sleeve and stimulating probe lead introduction system were assembled, inserted and advanced through the skin wheal to the point of interest under C-arm view in tunnel vision fashion, the introducer needle was delivered to a location in proximity to the nerve. Multiple stimulation parameters were used to deliver stimulation to the nerve in concert with stimulating at multiple positions around the nerve. nerve target acquisition was confirmed noting generation of in the corresponding to the nerve being stimulated. Various electrical parameter combinations were tested, and the lead location was adjusted (physically relocated) until the patient indicated overlapping the distribution of the patient?s typical region of pain. The stimulating probe was removed from the introducer and a percutaneous lead was guided through the needle and delivered to a location in similar proximity to the nerve. Final location was verified with electrical stimulation. The introducer needle was removed, and the exposed end of the percutaneous lead was attached to an external stimulator unit. At the end of the case various electrical parameter combinations were again tested until the patient indicated paresthesia or muscle tension overlapping the distribution of the patient?s typical region of pain. After confirming that lead impedance was in the normal range, the external unit was detached, the needle was removed, and the lead was anchored at the skin. The lead was threaded into the connector block and electrical continuity and desired patient response was confirmed. The connector block was attached to the external stimulator unit. The site was covered with a sterile occlusive dressing and a image was taken to document final placement. Upon completion of the procedure the patient was taken outside the OR where she recovered uneventfully she went home without immediate complications Orders: Orders FL guidance in treatment room 07/05/23 M47.816 - Spondylosis without myelopathy or radiculopathy, lumbar region Janet Shelley APRN, ASSOCIATE FINANCIAL ANALYST AMB Sprint PNS 07/05/23 M47.816 - Spondylosis without myelopathy or radiculopathy, lumbar region Janet Shelley APRN, ASSOCIATE FINANCIAL ANALYST Medications: New lidocaine (PF) 5 mL Infiltration ONCE 5 mL 0RF M47.816 - Spondylosis without myelopathy or radiculopathy, lumbar region Kaushik Lord MD Coding Level of Care Code Procedure Only Diagnoses Spondylosis of lumbar region without myelopathy or radiculopathy M47.816
[2023-07-05 12:59] VITALS: BP 122/78; PULSE 81; RESP 16; O2SAT 98; BMI 34.3
[2023-07-05 13:31] VITALS: BP 128/70; PULSE 71; RESP 16; O2SAT 98; BMI 34.3
== END 2023-07-05 13:32 | disposition home or self-care (01) ==
LOC: HO.PMCPRC 12:34
PROVIDERS: PCP Nurse Practitioner Family; Visit Provider Anesthesiology
DX: M47.816 Spondylosis without myelopathy or radiculopathy, lumbar region (principal)
CPT/HCPCS: 64555

== ENCOUNTER 2023-07-11 13:54 | Outpatient (AMB) | payer MEDICARE, MEDICAID, SELFPAY ==
[2023-07-11 15:33] VITALS: BP 122/74; PULSE 71; RESP 16; O2SAT 98; BMI 34.3
--- NOTE | 2023-07-11 15:33 | MHC.OFFVIS ---
Intake Vital Signs 07/11/23 15:33 Height 4 ft 11 in Weight 170 lb BMI 34.3 BP 122/74 Blood Pressure Location Lt brachial Position Sitting Respiration 16 Pulse 71 Pulse Source Pulse Oximeter Pulse Oximetry (%) 98 Oxygen Delivery Method Room Air Intake Visit Reasons: RIGHT L5 MB SPRINT PNS/07/05/23/ confirm Allergies No Known Allergies Allergy (Verified 07/11/23 15:41) HPI HPI Comments History of Present Illness Details Ms. Sanches is in my office after insertion and completion of the procedure of sprint PNS L5 bilateral. She received 1st procedure on the left and then she received completion of the procedure on the right. She reports still absence or very minimal pain on the left. She reports good stimulation on the right. We will see how after wash in period she will respond to analgesic action of the sprint PNS. Dressing was changed today. Overall patient is doing fairly well. She would need to continue to wear this device for next 60 days. PRIOR: Ms. Sanches is very pleasant and very nice 44 years old female who is in my office today status post insertion of left L5 sprint PNS.? She received this procedure? on 01/26/2022 and she reported very good pain relief after the procedure.? She reported better mobility better activities of daily living and better social interactions. It looks like that her pain is starting to come back although in somewhat unusual way.? She reports pain in the projection of the sacroiliac joint with radiation to the left hip however the Codey test is negative, the pelvis compression test is negative, the Stinchfield test is negative and this does not give me in impression that she has sacroiliitis.? Most likely she is suffering from the same problem as it was before.? It has been 8 month since the PNS insertion.? We can repeat this procedure for her in the operating room. Results of L2-L3 L4 dorsal ramus L5 medial branch block which was performed on 12/15/2021.? The patient reports pain relief after the injection for up to 6 hours.? She reports that her pain from level of 7-9 went initially down to 2 out of 10 and 3/10 for the 1st-3 hours after the injection and after that it slowly went back to 4-5 and eventually to 6 on a 6 hour after the injection.? This corresponds to longevity y of the ropivacaine injection action. Prior: complains on lower back pain mostly on the left side with radiation into the left lower extremity.? She is the patient with long history of lower back pain.? She is under observation in my office for more than a year .? She had diagnostic medial branch block on the left which with the a resulting in some pain relief and after that she went for radiofrequency ablation of L4-5 medial branch blocks on the left.? She reported that the procedure was working for only 1 or 2 weeks.? Is supposed to work for at least 6 months.? 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 L5-S1 Bilateral transforaminal epidural steroid injection helped significantly for the pain radiating to the left lower extremity.? However pain on the lateral side of the left lumbar spine remain.? She completed physical therapy less than 1 year ago.? She tried NSAIDs and muscle relaxants to treat her pain with no effect.. [facility] Medical History (Updated 06/14/23 @ 10:25 by Juana Tam RN) Spondylosis of lumbosacral joint without myelopathy Disc degeneration, lumbar Arthritis of hip Chronic pain syndrome Truncal obesity Mononeuropathy, unspecified Back pain Depression with anxiety Psoriasis Restless leg syndrome Essential hypertension Rectal or anal pain Hemorrhoid Surgical History (Updated 06/14/23 @ 10:32 by Juana Tam RN) S/P placement of nerve stimulator H/O hemorrhoidectomy History of partial hysterectomy Family History Mother Diabetes mellitus Essential hypertension Sister Diabetes mellitus Psoriasis Maternal Grandmother Breast cancer Social History Housing: Apartment Alcohol intake: never Patient Tobacco Use Status: Never used Tobacco e-Cigarette/Vaping Use: Never Used Second Hand Smoke Exposure: No service: No Current occupational status: unemployed Gender identity: Female Cognitive needs: No Hearing needs: No Vision needs: Yes Female Reproductive History Menstrual Age of Menarche: 11 Review of Systems Const All systems reviewed & are unremarkable except as noted in HPI and below ENT Reports Normal hearing present Neuro Reports Normal hearing present, Denies confusion and Denies Sensory deficit (Neuro) Psych Denies confusion Physical Exam Vital Signs: Last Vital Signs Pulse 71 07/11/23 15:33 Resp 16 03/04/24 15:33 BP 122/74 07/11/23 15:33 Pulse Ox 98 07/11/23 15:33 Oxygen Delivery Method Room Air 07/11/23 15:33 BMI result Body Mass Index 34.3 Const General: No confusion Orientation/consciousness: No confusion Eyes Pupils: Equal, round and reactive pupils present EOM: EOMs intact bilaterally Chest Chest palpation & inspection: normal inspection of the chest Resp Effort & Inspection: normal respiratory effort, able to speak in complete sentences, normal respiratory pattern, no audible wheezes and no cough Cardio Jugular venous distension: no JVD Back/Spine/Pelvis Other: Flexing forward is making her pain worse. No discomfort on lateral rotation of the hip or medial rotation of the hip. Codey test is negative on the left Stinchfield test is negative on the left pelvis compression test is negative on the left , Sheyla finger test rather negative on the left and most of the tenderness on palpation is in projection of the to cm below iliac crest in the top of the crest projection. The loading test is positive on the left. Neuro General: No confusion Cranial nerves: Yes Equal, round and reactive pupils present and Yes Normal hearing present Sensory Exam: No Sensory deficit (Neuro) Psych Speech and movement: Normal speech and movement present Affect: normal affect Attitude: cooperative Thought process: Normal thought process present Thought content: Normal thought content present Insight: Good insight present (Psych) Judgement: Good judgement present (Psych) Assessment & Plan Assessment & Plan (1) Disc degeneration, lumbar: Code(s): M51.36 - Other intervertebral disc degeneration, lumbar region (2) Spondylosis of lumbar region without myelopathy or radiculopathy: Code(s): M47.816 - Spondylosis without myelopathy or radiculopathy, lumbar region (3) Chronic pain syndrome: Code(s): G89.4 - Chronic pain syndrome Plan With results of sprint PNS now with bilateral stimulation. For the next 60 days she will continue to receive stimulation. I will continue observation. On the MRI there was some Modic type changes at L5-S1 interval. Prolong sitting and flexing forward she reports being painful. If sprint will not work I will schedule her for new MRI to evaluate Modic type changes in lumbar spine again. Coding Level of Care Code Est Pt Level 3 (50453) Diagnoses Disc degeneration, lumbar M51.36 Spondylosis of lumbar region without myelopathy or radiculopathy M47.816 Chronic pain syndrome G89.4
== END 2023-07-11 14:25 | disposition home or self-care (01) ==
PROVIDERS: PCP Nurse Practitioner Family; Visit Provider Anesthesiology
DX: M51.36 Other intervertebral disc degeneration, lumbar region (principal); M47.816 Spondylosis without myelopathy or radiculopathy, lumbar region; G89.4 Chronic pain syndrome
CPT/HCPCS: 99024

== ENCOUNTER → 2023-07-11 13:54 | Outpatient (BNVA) | payer MEDICARE, MEDICAID, SELFPAY | PROVIDERS: PCP Nurse Practitioner Family; Visit Provider Anesthesiology | DX: M51.36 Other intervertebral disc degeneration, lumbar region (principal); M47.816 Spondylosis without myelopathy or radiculopathy, lumbar region; G89.4 Chronic pain syndrome | CPT/HCPCS: 99212 ==

== ENCOUNTER 2023-07-19 07:12 | Outpatient (AMB) | payer MEDICARE, MEDICAID, SELFPAY ==
--- NOTE | 2023-07-19 07:14 | A.OFFPC_ITS ---
Intake Visit Reasons: referral Allergies No Known Allergies Allergy (Verified 07/11/23 15:41) Tobacco use date assessed: 03/08/23 HPI referral HPI Details Pt reports a previous episode where her right side became weak and she developed facial droop. She was told she had a TIA, see hospital documentation. Bubble study was normal. Pt reports no symptoms since this episode, and denies any residual symptoms. She has not had an MRI, will order. Will also refer to neurology. Denies any residual symptoms including dizziness, weakness, and facial droop. [facility] Medical History (Updated 06/14/23 @ 10:25 by Juana Tam RN) Spondylosis of lumbosacral joint without myelopathy Disc degeneration, lumbar Arthritis of hip Chronic pain syndrome Truncal obesity Mononeuropathy, unspecified Back pain Depression with anxiety Psoriasis Restless leg syndrome Essential hypertension Rectal or anal pain Hemorrhoid Surgical History (Updated 06/14/23 @ 10:32 by Juana Tam RN) S/P placement of nerve stimulator H/O hemorrhoidectomy History of partial hysterectomy Family History Mother Diabetes mellitus Essential hypertension Sister Diabetes mellitus Psoriasis Maternal Grandmother Breast cancer Social History Housing: Apartment Alcohol intake: never Patient Tobacco Use Status: Never used Tobacco e-Cigarette/Vaping Use: Never Used Second Hand Smoke Exposure: No service: No Current occupational status: unemployed Gender identity: Female Cognitive needs: No Hearing needs: No Vision needs: Yes Female Reproductive History Menstrual Age of Menarche: 11 Questionnaire Thrive Questionnaire Date Thrive assessed: 11/05/21 GEE-7 AMB Questionnaire GEE-7 Date GEE - 7 assessed: 11/05/21 Source: Developed by Drs. Gaurang Avendano, Joseline Garcia, Glenroy Fonseca and colleagues, with an educational constantine from [employer]. Review of Systems Const Reports as per HPI Physical exam (Primary Care) Tobacco/Smoking Status: Tobacco use Status Tobacco use date assessed 03/08/23 07/19/23 07:14 Patient Tobacco Use Status Never used Tobacco 07/19/23 07:14 e-Cigarette/Vaping Use Never Used 07/19/23 07:14 Thrive Assessment: Date of Thrive Assessment Date Thrive assessed 11/05/21 07/19/23 07:14 Const General: cooperative Orientation/consciousness: patient oriented x3 Neuro General: patient oriented x3 Psych Appearance: grossly normal Mental Status: mental status grossly normal Speech and movement: Clear speech present Affect: normal affect Attitude: cooperative Thought process: Normal thought process present Thought content: Normal thought content present Insight: Good insight present (Psych) Judgement: Good judgement present (Psych) Telehealth Telehealth Location of provider rendering services: practice address Location of patient: address on file Patient Identification confirmed using: Name, : Yes Telehealth method: video Patient verbally consented to treatment: Yes Patient verbally consented to billing insurance company: Yes Patient informed of any privacy concerns related to visit: Yes Minutes spent on Phone/Video with Pt.: 10 Assessment and Plan Assessment & Plan (1) TIA (transient ischemic attack): Code(s): G45.9 - Transient cerebral ischemic attack, unspecified Plan: MRI ordered, referred to neurology Plan The patient agreed to the use of a medical collections for this encounter. Scribed for KATHRYN Manning by [facility] medical collections, on 07/19/2023 at 07:15 EST. Orders: Orders MR head/brain wo con Today G45.9 - Transient cerebral ischemic attack, unspec ified Referrals Neurology Referral G45.9 - Transient cerebral ischemic attack, unspecified Coding Level of Care Code Tele Est Pt Level 3 (94790) Diagnoses TIA (transient ischemic attack) G45.9
== END 2023-07-19 07:41 | disposition home or self-care (01) ==
LOC: HO.HMGC 07:13
PROVIDERS: PCP Nurse Practitioner Family; Visit Provider Nurse Practitioner Family
DX: G45.9 Transient cerebral ischemic attack, unspecified (principal)
CPT/HCPCS: 99213

== ENCOUNTER → 2023-08-10 12:54 | Outpatient (BNVA) | payer MEDICARE, MEDICAID, SELFPAY | PROVIDERS: PCP Nurse Practitioner Family; Visit Provider Anesthesiology | DX: M51.36 Other intervertebral disc degeneration, lumbar region (principal); M47.816 Spondylosis without myelopathy or radiculopathy, lumbar region; G89.4 Chronic pain syndrome | CPT/HCPCS: 99212 ==

== ENCOUNTER → 2023-08-10 12:54 | Outpatient (AMB) | payer MEDICARE, MEDICAID, SELFPAY ==
--- NOTE | 2023-08-10 12:58 | A.OFFVIS_ITS ---
Intake Vital Signs 08/10/23 13:30 Height 4 ft 11 in Weight 171 lb 6 oz BMI 34.6 BP 140/90 H Blood Pressure Location Lt brachial Position Sitting Respiration 14 Pulse 64 Pulse Source Pulse Oximeter Pulse Oximetry (%) 97 Oxygen Delivery Method Room Air Intake Visit Reasons: Left Sprint removal Intake Note: Marguerite comes in for Sprint PNS device removal of left side, she also requested we remove her right side Sprint devices as well. Reports pain 0/10. Site was cleared no redness/drainage/swelling at site. Site clean with alcohol prep pad, and new dsd/tegaderm applied. Lead was pulled and intact. Allergies No Known Allergies Allergy (Verified 08/10/23 13:42) HPI HPI Comments History of Present Illness Details Ms. Sanches is in my office for the removal of the sprint PNS L5 bilateral leads. She reports 0 pain. She reports excellent mobility activities of daily living and social interactions. Activities limitations were explained to the patient. We also discussed possibility of repeating the procedure if her pain will come back. We can repeat procedure 4. Months from now. So the earliest we can not do the procedure will be beginning of the November 2023. e PRIOR: Ms. Sanches is very pleasant and very nice 44 years old female who is in my office today status post insertion of left L5 sprint PNS.? She received this procedure? on 01/26/2022 and she reported very good pain relief after the procedure.? She reported better mobility better activities of daily living and better social interactions. It looks like that her pain is starting to come back although in somewhat unusual way.? She reports pain in the projection of the sacroiliac joint with radiation to the left hip however the Codey test is negative, the pelvis compression test is negative, the Stinchfield test is negative and this does not give me in impression that she has sacroiliitis.? Most likely she is suffering from the same problem as it was before.? It has been 8 month since the PNS insertion.? We can repeat this procedure for her in the operating room. Results of L2-L3 L4 dorsal ramus L5 medial branch block which was performed on 12/15/2021.? The patient reports pain relief after the injection for up to 6 hours.? She reports that her pain from level of 7-9 went initially down to 2 out of 10 and 3/10 for the 1st-3 hours after the injection and after that it slowly went back to 4-5 and eventually to 6 on a 6 hour after the injection.? This corresponds to longevity y of the ropivacaine injection action. Prior: complains on lower back pain mostly on the left side with radiation into the left lower extremity.? She is the patient with long history of lower back pain.? She is under observation in my office for more than a year .? She had diagnostic medial branch block on the left which with the a resulting in some pain relief and after that she went for radiofrequency ablation of L4-5 medial branch blocks on the left.? She reported that the procedure was working for only 1 or 2 weeks.? Is supposed to work for at least 6 months.? 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 L5-S1 Bilateral transforaminal epidural steroid injection helped significantly for the pain radiating to the left lower extremity.? However pain on the lateral side of the left lumbar spine remain.? She completed physical therapy less than 1 year ago.? She tried NSAIDs and muscle relaxants to treat her pain with no effect.. [facility] Medical History (Updated 06/14/23 @ 10:25 by Juana Tam RN) Spondylosis of lumbosacral joint without myelopathy Disc degeneration, lumbar Arthritis of hip Chronic pain syndrome Truncal obesity Mononeuropathy, unspecified Back pain Depression with anxiety Psoriasis Restless leg syndrome Essential hypertension Rectal or anal pain Hemorrhoid Surgical History (Updated 06/14/23 @ 10:32 by Juana Tam RN) S/P placement of nerve stimulator H/O hemorrhoidectomy History of partial hysterectomy Family History Mother Diabetes mellitus Essential hypertension Sister Diabetes mellitus Psoriasis Maternal Grandmother Breast cancer Social History Housing: Apartment Alcohol intake: never Patient Tobacco Use Status: Never used Tobacco e-Cigarette/Vaping Use: Never Used Second Hand Smoke Exposure: No service: No Current occupational status: unemployed Gender identity: Female Cognitive needs: No Hearing needs: No Vision needs: Yes Female Reproductive History Menstrual Age of Menarche: 11 Review of Systems Const All systems reviewed & are unremarkable except as noted in HPI and below ENT Reports Normal hearing present Neuro Reports Normal hearing present, Denies confusion and Denies Sensory deficit (Neuro) Psych Denies confusion Physical Exam Vital Signs: Last Vital Signs Pulse 64 08/10/23 13:30 Resp 14 08/10/23 13:30 BP 140/90 H 08/10/23 13:30 Pulse Ox 97 08/10/23 13:30 Oxygen Delivery Method Room Air 08/10/23 13:30 BMI result Body Mass Index 34.6 Const General: No confusion Orientation/consciousness: No confusion Eyes Pupils: Equal, round and reactive pupils present EOM: EOMs intact bilaterally Chest Chest palpation & inspection: normal inspection of the chest Resp Effort & Inspection: normal respiratory effort, able to speak in complete sentences, normal respiratory pattern, no audible wheezes and no cough Cardio Jugular venous distension: no JVD Back/Spine/Pelvis Other: Flexing forward is making her pain worse. No discomfort on lateral rotation of the hip or medial rotation of the hip. Codey test is negative on the left Stinchfield test is negative on the left pelvis compression test is negative on the left , Sheyla finger test rather negative on the left and most of the tenderness on palpation is in projection of the to cm below iliac crest in the top of the crest projection. The loading test is positive on the left. Neuro General: No confusion Cranial nerves: Yes Equal, round and reactive pupils present and Yes Normal hearing present Sensory Exam: No Sensory deficit (Neuro) Psych Speech and movement: Normal speech and movement present Affect: normal affect Attitude: cooperative Thought process: Normal thought process present Thought content: Normal thought content present Insight: Good insight present (Psych) Judgement: Good judgement present (Psych) Assessment & Plan Assessment & Plan (1) Disc degeneration, lumbar: Code(s): M51.36 - Other intervertebral disc degeneration, lumbar region (2) Spondylosis of lumbar region without myelopathy or radiculopathy: Code(s): M47.816 - Spondylosis without myelopathy or radiculopathy, lumbar region (3) Chronic pain syndrome: Code(s): G89.4 - Chronic pain syndrome Plan Excellent results of the sprint PNS. We can repeat the procedure in the beginning of November. Let us hope her pain will last longer than that. On the MRI there was some Modic type changes at L5-S1 interval. Prolong sitting and flexing forward she reports being painful. This is a possibility to address another pain generators. Coding Level of Care Code Est Pt Level 3 (34324) Diagnoses Disc degeneration, lumbar M51.36 Spondylosis of lumbar region without myelopathy or radiculopathy M47.816 Chronic pain syndrome G89.4
[2023-08-10 13:30] VITALS: BP 140/90; PULSE 64; RESP 14; O2SAT 97; BMI 34.6
== END ==
PROVIDERS: PCP Nurse Practitioner Family; Visit Provider Anesthesiology
DX: M51.36 Other intervertebral disc degeneration, lumbar region (principal); M47.816 Spondylosis without myelopathy or radiculopathy, lumbar region; G89.4 Chronic pain syndrome
CPT/HCPCS: 99213

== ENCOUNTER 2023-09-04 14:22 | Outpatient (REF) | payer MEDICARE, MEDICAID, SELFPAY ==
--- NOTE | ~2023-09-04 | MR_ITS ---
EXAMINATION: MR BRAIN WITHOUT CONTRAST CLINICAL INFORMATION: Transient cerebral ischemic attack. COMPARISON: There are no prior studies available for comparison. TECHNIQUE: MRI of the brain was obtained using routine sequences without contrast. FINDINGS: No diffusion abnormalities are identified to suggest an acute or subacute infarct. No mass effect or midline shift is seen. There is slight commensurate prominence of the ventricles and sulci. There are a few nonspecific foci of hyperintense T2 and FLAIR signal in the periventricular white matter. No extra-axial fluid collections are seen. The brainstem appears normal. No pathologic magnetic susceptibility artifact is identified on the gradient refocused acquisition. The cerebellar tonsils have normal contour and position, and the craniocervical junction appears normal. The midline structures are normal. There is a small area of fatty marrow in the posterior wall of the left sphenoid bone. The major intracranial flow-voids at the level of the [place] are preserved. The dural venous sinus flow-voids are maintained. The mastoid air cells and paranasal sinuses are well-aerated. MR/MR head/brain wo con IMPRESSION: 1. There are no acute bleeds or territorial infarcts. No masses are demonstrated. There are a few scattered foci of increased T2 and FLAIR in the white matter which are nonspecific.
== END 2023-09-04 14:23 | disposition home or self-care (01) ==
LOC: HO.MRI 14:22
PROVIDERS: PCP Nurse Practitioner Family; Visit Provider Nurse Practitioner Family
DX: Z86.73 Personal history of transient ischemic attack (TIA), and cerebral infarction without residual deficits (principal)
CPT/HCPCS: 70551

== ENCOUNTER 2023-10-13 13:01 | Outpatient (AMB) | payer MEDICARE, MEDICAID, SELFPAY ==
--- NOTE | 2023-10-13 13:10 | A.OFFVIS_ITS ---
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 Doing well with no concerns. She tries to eat healthy, picky, trying to lose weight, and stays active with exercise-bikes. Currently is sexually active. She denies vaginal itching and irritation. History of hysterectomy due to heavy menstrual bleeding, has a vaginal cuff. Denies family history of ovarian or colon cancer. FH Last pap smear 2020 negative. Mammogram: 2022. Working through medical clearance for colonoscopy post TIA. [facility] Medical History Spondylosis of lumbosacral joint without myelopathy Disc degeneration, lumbar Arthritis of hip Chronic pain syndrome Truncal obesity Mononeuropathy, unspecified Back pain Depression with anxiety Psoriasis Restless leg syndrome Essential hypertension Rectal or anal pain Hemorrhoid Surgical History (Updated 10/13/23 @ 13:27 by Shannon Machuca CNM) S/P placement of nerve stimulator H/O hemorrhoidectomy History of partial hysterectomy Family History Mother Diabetes mellitus Essential hypertension Sister Diabetes mellitus Psoriasis Maternal Grandmother Breast cancer Social History Housing: Apartment Alcohol intake: never Patient Tobacco Use Status: Never used Tobacco e-Cigarette/Vaping Use: Never Used Second Hand Smoke Exposure: No service: No Current occupational status: unemployed Gender identity: Female Cognitive needs: No Hearing needs: No Vision needs: Yes Female Reproductive History Menstrual Age of Menarche: 11 control method: permanent sterilization Total pregnancies: 2 Full term: 2 Number of Living Children: 2 Date of last pap smear: 02/19/21 (negative) Date of Mammogram: 12/24/22 Review of Systems Const All systems reviewed & are unremarkable except as noted in HPI and below Reports as per HPI Eyes Reports no additional complaints ENT Reports no additional complaints Card Reports no additional complaints Resp Reports no additional complaints GI Reports as per HPI and Reports no additional complaints Reports as per HPI Musc Reports no additional complaints Skin/Breast Reports as per HPI Neuro Reports no additional complaints Psych Reports no additional complaints Endo Reports no additional complaints Jass/Lymph Reports no additional complaints Aller/Immun Reports no additional complaints Physical Exam Vital Signs: Last Vital Signs BP 142/80 H 10/13/23 13:13 BMI result Body Mass Index 33.7 Const General: cooperative, healthy appearing, no acute distress, well developed and alert Orientation/consciousness: patient oriented x3 HEENT Head: Yes normal to inspection Eyes General: appearance normal, both eyes and all related structures Neck Neck: Yes normal visual inspection Thyroid: Thyroid normal Chest Chest palpation & inspection: normal inspection of the chest and other (no puckering, dimpling, peau de orange, retraction, discharge, masses) Breast/axilla inspection: normal inspection of the breasts Breast/axilla palpation: normal palpation of the breasts Resp Effort & Inspection: normal respiratory effort GI Inspection: Yes normal to inspection Palpation (GI): Soft to palpation Rectal Exam - Female: deferred General: Yes bladder normal to palpation External Female Exam: normal external appearance and normal appearance of the urethra Speculum Exam - Vagina: normal appearance of the vagina, normal palpation, n ormal vaginal discharge, abnormal vaginal discharge (White and clumpy), vagina atrophic, erythematous and other (Slightly friable with speculum insertion ) Speculum Exam - Cervix: normal appearance of the cervix and Cervix absent (Vaginal cuff no lesions or nodules) Bimanual exam- vagina & uterus: normal bimanual exam, normal palpation, bladder normal to palpation and uterus absent Bimanual Exam- Adnexa, other: no masses Skin General skin exam: no rashes or lesions noted Rashes: no rashes Neuro General: patient oriented x3 Cognition (Neuro): normal cognition Extrem General: Yes normal to inspection Psych Attitude: cooperative Thought process: Normal thought process present Assessment & Plan Assessment & Plan (1) Encounter for well woman exam with routine gynecological exam: Code(s): Z01.419 - Encounter for gynecological examination (general) (routine) without abnormal findings Category: Medical (2) Vaginal discharge: Code(s): N89.8 - Other specified noninflammatory disorders of vagina Plan Discussed: Current recommendations for pap smears per ASCCP guidelines. Breast awareness and periodic breast exams. Maintain a healthy lifestyle including a well balanced diet and routine exercise. BV panel obtained due to abnormal discharge. Mild atrophic changes in irritation. Replens moisturizer and Replens lubrication. Mammogram yearly. Colonoscopy >45, or at risk sooner Patient verbalizes understanding and agrees to the plan of care. She was given opportunity to ask questions and all questions were answered to the best of my ability. RTO in one year for annual community engagement representative examination. This note is constructed using voice recognition software. While every effort has been made to ensure accuracy, coin teller errors may have been included. Orders: Orders Bacterial Vaginosis Panel Today N89.8 - Other specified noninflammatory disorders of vagina Coding Level of Care Code Est Pt Prev Care 40-64y(19434) Diagnoses Encounter for well woman exam with routine gynecological exam Z01.419 Vaginal discharge N89.8
[2023-10-13 13:13] VITALS: BP 142/80; BMI 33.7
== END 2023-10-13 13:53 | disposition home or self-care (01) ==
PROVIDERS: PCP Nurse Practitioner Family; Visit Provider Advanced Practice Midwife
DX: Z01.419 Encounter for gynecological examination (general) (routine) without abnormal findings (principal); N89.8 Other specified noninflammatory disorders of vagina
CPT/HCPCS: G0101

== ENCOUNTER 2023-10-13 13:01 | Outpatient (REF) | payer MEDICARE, MEDICAID, SELFPAY ==
[2023-10-13 16:51] LABS: Bacterial Vaginosis PCR NEGATIVE (Negative); Candida Group PCR DETECTED (Not Detect); Candida glab krusei PCR NOT DETECTED (Not Detect); Trichomonas vaginalis PCR NOT DETECTED (Not Detect)
== END 2023-10-13 13:02 | disposition home or self-care (01) ==
LOC: HO.LNP 13:01
PROVIDERS: PCP Nurse Practitioner Family; Visit Provider Advanced Practice Midwife
DX: Z01.419 Encounter for gynecological examination (general) (routine) without abnormal findings (principal); N89.8 Other specified noninflammatory disorders of vagina
CPT/HCPCS: 0352U; G0101

== ENCOUNTER 2023-12-05 11:17 | Outpatient (AMB) | payer MEDICARE, MEDICAID, SELFPAY ==
--- NOTE | 2023-12-05 11:28 | A.OFFPC_ITS ---
Vital Signs 12/05/23 11:31 Height 4 ft 11 in Weight 159 lb BMI 32.1 BP 132/80 Blood Pressure Location Rt brachial Position Sitting Pulse 76 Pulse Source Pulse Oximeter Pulse Oximetry (%) 98 Oxygen Delivery Method Room Air Intake Visit Reasons: knee pain Intake Note: Patient here for bilat knee pain, left side is worsening. Allergies No Known Allergies Allergy (Verified 12/05/23 11:34) Tobacco use date assessed: 12/05/23 Dental Screening Dental Screen Date: 12/05/23 Did you have a dental visit in the last 12 months?: Yes Did you have a dental problem in the last 6 months where you did not have access to dental care?: No Was dental information given to patient?: Patient has dentist HPI knee pain HPI Details left knee pain, ongoing for many months. Last fall XR showed mild degen changes. Pt reports she has not participated in PT. Pt describes louie inferior/anterior left knee pain. [facility] Medical History Spondylosis of lumbosacral joint without myelopathy Disc degeneration, lumbar Arthritis of hip Chronic pain syndrome Truncal obesity Mononeuropathy, unspecified Back pain Depression with anxiety Psoriasis Restless leg syndrome Essential hypertension Rectal or anal pain Hemorrhoid Surgical History (Updated 10/13/23 @ 13:27 by Shannon Machuca CNM) S/P placement of nerve stimulator H/O hemorrhoidectomy History of partial hysterectomy Family History Mother Diabetes mellitus Essential hypertension Sister Diabetes mellitus Psoriasis Maternal Grandmother Breast cancer Social History Housing: Apartment Alcohol intake: never Patient Tobacco Use Status: Never used Tobacco e-Cigarette/Vaping Use: Never Used Second Hand Smoke Exposure: No service: No Current occupational status: unemployed Gender identity: Female Cognitive needs: No Hearing needs: No Vision needs: Yes Female Reproductive History Menstrual Age of Menarche: 11 Questionnaire PHQ-9 Over the last 2 weeks, how often have you been bothered by any of the following problems? 1. Little interest or pleasure in doing things: not at all 2. Feeling down, depressed, or hopeless: not at all 3. Trouble falling or staying asleep, or sleeping too much: not at all 4. Feeling tired or having little energy: not at all 5. Poor appetite or overeating: not at all 6. Feeling bad about yourself - or that you are a failure or have let yourself or your family down: not at all 7. Trouble concentrating on things, such as reading the newspaper or watching television: not at all 8. Moving or speaking so slowly that other people could have noticed. Or the opposite - being so fidgety or restless that you have been moving around a lot more than usual: not at all 9. Thoughts that you would be better off or of hurting yourself in some way: not at all Total score: 0 Source: Developed by Drs. Gaurang Avendano, Joseline Garcia, Glenroy Fonseca and colleagues, with an educational constantine from [employer]. Thrive Questionnaire Date Thrive assessed: 11/28/23 I am a: Patient What is your living situation today?: I have a steady place to live Within the past 12 months, did the food you bought not last and you didn't have the money to get more?: Never true Within the past 12 months, did you worry whether your food would run out before you got money to buy more?: Never true Do you have trouble paying for medicines?: No Do you have trouble getting transportation to medical appointments?: No Do you have trouble paying your heating and electricity bill?: No Do you have trouble taking care of your child, family member or friend?: No Do you have trouble with day-to-day activities such as bathing, preparing meals, shopping, managing finances, etc.?: I choose not to answer this question Are you currently unemployed and looking for a job?: No Are you interested in more education?: No Please select the resources that you would like help with: Housing/Long-Term Currently or been in a relationship where the following occur: No concerns reported THRIVE Score: 0 AUDIT C Alcohol Use Questionnaire (AUDIT-C) 1. How often do you have a drink containing alcohol?: Never 3. How often do you have six or more drinks on one occasion?: Never Total Score: 0 GEE-7 AMB Questionnaire GEE-7 Date GEE - 7 assessed: 11/05/21 Feeling nervous, anxious, or on edge: 0 = Not at all Not being able to stop or control worryin = Not at all Worrying too much about different things: 0 = Not at all Trouble relaxin = Not at all Being so restless that it is hard to sit still: 0 = Not at all Becoming easily annoyed or irritable: 0 = Not at all Feeling afraid as if something awful might happen: 0 = Not at all Total GEE-7 score (0-4 normal; 5-9 mild; 10-14 moderate; 15-21 severe): 0 Source: Developed by Drs. Gaurang Avendano, Joseline Garcia, Glenroy Fonseca and colleagues, with an educational constantine from [employer]. Physical exam (Primary Care) Vital Signs: Last Vital Signs Pulse 76 12/05/23 11:31 BP 132/80 12/05/23 11:31 Pulse Ox 98 12/05/23 11:31 Oxygen Delivery Method Room Air 12/05/23 11:31 BMI result Body Mass Index 32.1 Tobacco/Smoking Status: Tobacco use Status Tobacco use date assessed 12/05/23 12/05/23 11:37 Patient Tobacco Use Status Never used Tobacco 12/05/23 11:30 e-Cigarette/Vaping Use Never Used 12/05/23 11:30 PHQ-9: PHQ-9 Score PHQ-9: Total score 0 12/05/23 11:30 Thrive Assessment: Date of Thrive Assessment Date Thrive assessed 11/28/23 12/05/23 11:30 Currently or been in a relationship where the following occur: No concerns reported Const Orientation/consciousness: oriented to person, oriented to place and oriented to time Resp Auscultation: clear to auscultation bilaterally Cardio Rate: regular rate Rhythm: regular rhythm Heart sounds: S1 normal heart sound present, S2 normal heart sound present and no murmurs Neuro General: oriented to person, oriented to place and oriented to time Extrem Left lower extremity: knee (alf lachmans, neg mcmurrays, no pain/crepitus with current flex and exten) Psych Appearance: grossly normal Mental Status: mental status grossly normal Speech and movement: Normal speech and movement present Affect: normal affect Thought process: Normal thought process present Thought content: Normal thought content present Assessment and Plan Assessment & Plan (1) Left knee pain: Code(s): M25.562 - Pain in left knee Plan: repeat XR, PT Orders: Orders PT Evaluation and Treatment Today M25.562 - Pain in left knee XR knee LT 2V Today M25.562 - Pain in left knee Coding Level of Care Code Est Pt Level 3 (61192) Diagnoses Left knee pain M25.562
[2023-12-05 11:31] VITALS: BP 132/80; PULSE 76; O2SAT 98; BMI 32.1
== END 2023-12-05 11:49 | disposition home or self-care (01) ==
PROVIDERS: PCP Nurse Practitioner Family; Visit Provider Nurse Practitioner Family
DX: M25.562 Pain in left knee (principal)
CPT/HCPCS: 99213

== ENCOUNTER 2023-12-05 11:49 | Outpatient (REF) | payer MEDICARE, MEDICAID, SELFPAY ==
--- NOTE | ~2023-12-05 | XR_ITS ---
EXAMINATION: XR KNEE, LEFT CLINICAL INFORMATION: Pain in the left knee COMPARISON: X-ray of the left knee February 2023 TECHNIQUE: Two views of the left knee. FINDINGS: No fracture or joint effusion. Alignment is anatomic. Joint spaces are maintained. No abnormal soft tissue calcification. XR/XR knee LT 2V IMPRESSION: Normal left knee.
== END 2023-12-05 11:50 | disposition home or self-care (01) ==
LOC: HO.HMGCX 11:49
PROVIDERS: PCP Nurse Practitioner Family; Visit Provider Nurse Practitioner Family
DX: M25.562 Pain in left knee (principal)
CPT/HCPCS: 73560

== ENCOUNTER 2024-03-28 15:50 | Outpatient (AMB) | payer MEDICARE, MEDICAID, SELFPAY ==
[2024-03-28 15:57] VITALS: BP 132/78; PULSE 87; O2SAT 98; BMI 32.1
--- NOTE | 2024-03-28 15:57 | MHC.PC.OV ---
Vital Signs 03/28/24 15:57 Height 4 ft 11 in Weight 159 lb BMI 32.1 BP 132/78 Blood Pressure Location Lt brachial Position Sitting Pulse 87 Pulse Source Pulse Oximeter Pulse Oximetry (%) 98 Intake Visit Reasons: Annual PE Intake Note: pt is here for annual exam Holder Pile Driving Required: No Accompanied by: Self / Same As Patient Allergies No Known Allergies Allergy (Verified 03/28/24 16:38) Medication List - Last Reconciled 03/28/24 by KATHRYN Jeffries docusate sodium (Colace) 100 mg PO BID fluoxetine 10 mg PO DAILY lisinopril 10 mg PO DAILY ropinirole 1 mg PO BEDTIME 30 days Shower Chair shower chair with back Tobacco use date assessed: 12/05/23 Dental Screening Dental Screen Date: 12/05/23 HPI HPI Comments History of Present Illness Details Pt is here for a PE. colonoscopy pt will call about, after cleared by neurology (? TIA previously). Mammogram due, pt has not called yet, will still place a mammo order in. [facility] Medical History Spondylosis of lumbosacral joint without myelopathy Disc degeneration, lumbar Arthritis of hip Chronic pain syndrome Truncal obesity Mononeuropathy, unspecified Back pain Depression with anxiety Psoriasis Restless leg syndrome Essential hypertension Rectal or anal pain Hemorrhoid Surgical History S/P placement of nerve stimulator H/O hemorrhoidectomy History of partial hysterectomy Family History Mother Diabetes mellitus Essential hypertension Sister Diabetes mellitus Psoriasis Maternal Grandmother Breast cancer Social History Housing: Apartment Alcohol intake: never Patient Tobacco Use Status: Never used Tobacco e-Cigarette/Vaping Use: Never Used Second Hand Smoke Exposure: No service: No Current occupational status: unemployed Gender identity: Female Cognitive needs: No Hearing needs: No Vision needs: Yes Female Reproductive History Menstrual Age of Menarche: 11 Questionnaire PHQ-9 Over the last 2 weeks, how often have you been bothered by any of the following problems? 59272 - PHQ-9 Billing: Patient declined-do not bill Source: Developed by Drs. Gaurang Avendano, Joseline Garcia, Glenroy Fonseca and colleagues, with an educational constantine from [employer] Thrive Questionnaire Date Thrive assessed: 03/28/24 I am a: Patient What is your living situation today?: I have a steady place to live Within the past 12 months, did the food you bought not last and you didn't have the money to get more?: Never true Within the past 12 months, did you worry whether your food would run out before you got money to buy more?: Never true Do you have trouble paying for medicines?: No Do you have trouble getting transportation to medical appointments?: No Do you have trouble paying your heating and electricity bill?: No Do you have trouble taking care of your child, family member or friend?: No Do you have trouble with day-to-day activities such as bathing, preparing meals, shopping, managing finances, etc.?: I choose not to answer this question Are you currently unemployed and looking for a job?: No Are you interested in more education?: No Please select the resources that you would like help with: None Currently or been in a relationship where the following occur: No concerns reported THRIVE Score: 0 GEE-7 AMB Questionnaire GEE-7 Date GEE - 7 assessed: 03/28/24 Feeling nervous, anxious, or on edge: 0 = Not at all Not being able to stop or control worryin = Not at all Worrying too much about different things: 0 = Not at all Trouble relaxin = Not at all Being so restless that it is hard to sit still: 0 = Not at all Becoming easily annoyed or irritable: 0 = Not at all Feeling afraid as if something awful might happen: 0 = Not at all Total GEE-7 score (0-4 normal; 5-9 mild; 10-14 moderate; 15-21 severe): 0 Source: Developed by Drs. Gaurang Avendano, Joseline Garcia, Glenroy Fonseca and colleagues, with an educational constantine from [employer] GEE-7 Assessment Billing GEE-7 Assessment Tool: GEE-7 Assessment 23395 Review of Systems Const Denies chills and Denies fever(s) Eyes Denies blurry vision ENT Denies vertigo, Denies dizziness and Denies sore throat Card Denies chest pain at rest, Denies chest pain with activity, Denies diaphoresis, Denies dyspnea and Denies dyspnea on exertion Resp Denies cough, Denies dyspnea, Denies dyspnea on exertion and Denies wheezing GI Denies abdominal pain, Denies melena, Denies hematochezia, Denies constipation, Denies diarrhea and Denies loose stools Denies hematuria Musc Denies numbness and Denies tingling Skin/Breast Denies lesions Neuro Denies vertigo, Denies dizziness, Denies numbness and Denies tingling Psych Denies anxiety, Denies depression, Denies homicidal ideation, Denies suicidal ideation and Denies other (substance abuse) Aller/Immun Denies wheezing Physical exam (Primary Care) Vital Signs: Last Vital Signs Pulse 87 03/28/24 15:57 BP 132/78 03/28/24 15:57 Pulse Ox 98 03/28/24 15:57 BMI result Body Mass Index 32.1 Tobacco/Smoking Status: Tobacco use Status Tobacco use date assessed 12/05/23 03/28/24 15:59 Patient Tobacco Use Status Never used Tobacco 03/28/24 15:59 e-Cigarette/Vaping Use Never Used 03/28/24 15:59 Thrive Assessment: Date of Thrive Assessment Date Thrive assessed 03/28/24 03/28/24 15:59 Currently or been in a relationship where the following occur: No concerns reported Const General: cooperative Nutritional Appearance: well nourished and obese Orientation/consciousness: patient oriented x3 [facility] Head: Yes normal to inspection, Yes normocephalic and Yes atraumatic Ears: TM normal on the right and TM normal on the left Eyes General: appearance normal, both eyes and all related structures Alignment and Position: alignment normal and position normal Neck Neck: Yes normal visual inspection, Yes no lymphadenopathy and Yes supple Resp Effort & Inspection: normal respiratory effort Auscultation: clear to auscultation bilaterally Cardio Rate: regular rate Rhythm: regular rhythm Heart sounds: S1 normal heart sound present, S2 normal heart sound present and no murmurs GI Palpation (GI): Soft to palpation and nontender Auscultation: normal bowel sounds Skin Rashes: no rashes Neuro General: patient oriented x3, moves all extremities, no focal motor deficits and deep tendon reflexes 2+ bilaterally Romberg Test: Negative Extrem Right lower extremity: no edema Left lower extremity: no edema Psych Appearance: grossly normal Mental Status: mental status grossly normal Speech and movement: Normal speech and movement present Affect: normal affect Attitude: cooperative Thought process: Normal thought process present Thought content: Normal thought content present Insight: Good insight present (Psych) Judgement: Good judgement present (Psych) Coding Level of Care Code Est Pt Prev Care 40-64y(48063) Diagnoses Physical exam Z00. Vitamin D deficiency E55.9 Additional Codes GEE-7 Assessment Billing - GEE-7 Assessment Tool: GEE-7 Assessment 74403 ([id number]) Assessment & Plan Assessment & Plan (1) Physical exam: Code(s): Z. - Encounter for general adult medical examination without abnormal findings Category: Medical Plan: labs ordered (2) Vitamin D deficiency: Code(s): E55.9 - Vitamin D deficiency, unspecified Category: Medical Plan: labs Orders: Orders MM screening mammo BI Today Z12.31 - Encounter for screening mammogram for malignant neoplasm of breast Comprehensive [place]. Panel Fast Today Z00.00 - Encounter for general adult medical examination without abnormal findings Lipid Panel Today Z00.00 - Encounter for general adult medical examination without abnormal findings Vitamin D 25-OH Total Today E55.9 - Vitamin D deficiency, unspecified Complete Blood Count Auto Diff Today Z00.00 - Encounter for general adult medical examination without abnormal findings TSH reflex Free T4 Today Z00.00 - Encounter for general adult medical examination without abnormal findings UA CC w/rflx Micro + Cult Today Z00.00 - Encounter for general adult medical examination without abnormal findings
== END 2024-03-28 17:00 ==
PROVIDERS: PCP Nurse Practitioner Family; Visit Provider Nurse Practitioner Family
DX: Z00.00 Encounter for general adult medical examination without abnormal findings (principal); E55.9 Vitamin D deficiency, unspecified

== ENCOUNTER → 2024-03-28 15:50 | Outpatient (BNVA) | payer MEDICARE, MEDICAID, SELFPAY | PROVIDERS: PCP Nurse Practitioner Family; Visit Provider Nurse Practitioner Family | DX: Z00.00 Encounter for general adult medical examination without abnormal findings (principal); E55.9 Vitamin D deficiency, unspecified; I10 Essential (primary) hypertension | CPT/HCPCS: 96127; 99396 ==

== ENCOUNTER 2024-04-26 14:54 | Outpatient (AMB) | payer MEDICARE, MEDICAID, SELFPAY ==
--- NOTE | 2024-04-26 14:55 | MHC.OFFVIS ---
Vital Signs 04/26/24 14:57 Height 4 ft 11 in Weight 166 lb 2 oz BMI 33.5 BP 160/74 H Blood Pressure Location Rt brachial Position Sitting Pulse 80 Pulse Source Pulse Oximeter Pulse Oximetry (%) 98 Oxygen Delivery Method Room Air Intake Visit Reasons: Back Pain Allergies No Known Allergies Allergy (Verified 04/26/24 14:59) HPI Comments Details: Ms. Sanches is in my office for the removal of the sprint PNS L5 bilateral leads. She reports 0 pain. She reports excellent mobility activities of daily living and social interactions. Activities limitations were explained to the patient. We also discussed possibility of repeating the procedure if her pain will come back. We can repeat procedure 4. Months from now. So the earliest we can not do the procedure will be beginning of the November 2023. e PRIOR: Ms. Sanches is very pleasant and very nice 44 years old female who is in my office today status post insertion of left L5 sprint PNS. It has been 9 months since the completion of her procedure. She requests me to schedule her for repetition of sprint PNS. We will schedule the procedure 1st on the left and then on the right since pain in the left is stronger. Initially? She received this procedure? on 01/26/2022 and she reported very good pain relief after the procedure.? She reported better mobility better activities of daily living and better social interactions. It looks like that her pain is starting to come back although in somewhat unusual way.? She reports pain in the projection of the sacroiliac joint with radiation to the left hip however the Codey test is negative, the pelvis compression test is negative, the Stinchfield test is negative and this does not give me in impression that she has sacroiliitis.? Most likely she is suffering from the same problem as it was before.? It has been 8 month since the PNS insertion.? We can repeat this procedure for her in the operating room. Results of L2-L3 L4 dorsal ramus L5 medial branch block which was performed on 12/15/2021.? The patient reports pain relief after the injection for up to 6 hours.? She reports that her pain from level of 7-9 went initially down to 2 out of 10 and 3/10 for the 1st-3 hours after the injection and after that it slowly went back to 4-5 and eventually to 6 on a 6 hour after the injection.? This corresponds to longevity y of the ropivacaine injection action. Prior: complains on lower back pain mostly on the left side with radiation into the left lower extremity.? She is the patient with long history of lower back pain.? She is under observation in my office for more than a year .? She had diagnostic medial branch block on the left which with the a resulting in some pain relief and after that she went for radiofrequency ablation of L4-5 medial branch blocks on the left.? She reported that the procedure was working for only 1 or 2 weeks.? Is supposed to work for at least 6 months.? 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 L5-S1 Bilateral transforaminal epidural steroid injection helped significantly for the pain radiating to the left lower extremity.? However pain on the lateral side of the left lumbar spine remain.? She completed physical therapy less than 1 year ago.? She tried NSAIDs and muscle relaxants to treat her pain with no effect.. [facility] Medical History Spondylosis of lumbosacral joint without myelopathy Disc degeneration, lumbar Arthritis of hip Chronic pain syndrome Truncal obesity Mononeuropathy, unspecified Back pain Depression with anxiety Psoriasis Restless leg syndrome Essential hypertension Rectal or anal pain Hemorrhoid Surgical History S/P placement of nerve stimulator H/O hemorrhoidectomy History of partial hysterectomy Family History Mother Diabetes mellitus Essential hypertension Sister Diabetes mellitus Psoriasis Maternal Grandmother Breast cancer Social History Housing: Apartment Alcohol intake: never Patient Tobacco Use Status: Never used Tobacco e-Cigarette/Vaping Use: Never Used Second Hand Smoke Exposure: No service: No Current occupational status: unemployed Gender identity: Female Cognitive needs: No Hearing needs: No Vision needs: Yes Female Reproductive History Menstrual Age of Menarche: 11 Review of Systems Const All systems reviewed & are unremarkable except as noted in HPI and below ENT Reports Normal hearing present Neuro Reports Normal hearing present, Denies confusion and Denies Sensory deficit (Neuro) Psych Denies confusion Physical Exam Vital Signs: Last Vital Signs Pulse 80 04/26/24 14:57 BP 160/74 H 04/26/24 14:57 Pulse Ox 98 04/26/24 14:57 Oxygen Delivery Method Room Air 04/26/24 14:57 BMI result Body Mass Index 33.5 Const General: No confusion Orientation/consciousness: No confusion Eyes Pupils: Equal, round and reactive pupils present EOM: EOMs intact bilaterally Chest Chest palpation & inspection: normal inspection of the chest Resp Effort & Inspection: normal respiratory effort, able to speak in complete sentences, normal respiratory pattern, no audible wheezes and no cough Cardio Jugular venous distension: no JVD Back/Spine/Pelvis Other: Flexing forward is making her pain worse. No discomfort on lateral rotation of the hip or medial rotation of the hip. Codey test is negative on the left Stinchfield test is negative on the left pelvis compression test is negative on the left , Sheyla finger test rather negative on the left and most of the tenderness on palpation is in projection of the to cm below iliac crest in the top of the crest projection. The loading test is positive on the left. Neuro General: No confusion Cranial nerves: Yes Equal, round and reactive pupils present and Yes Normal hearing present Sensory Exam: No Sensory deficit (Neuro) Psych Speech and movement: Normal speech and movement present Affect: normal affect Attitude: cooperative Thought process: Normal thought process present Thought content: Normal thought content present Insight: Good insight present (Psych) Judgement: Good judgement present (Psych) Assessment & Plan Assessment & Plan (1) Disc degeneration, lumbar: Code(s): M51.36 - Other intervertebral disc degeneration, lumbar region Category: Medical (2) Spondylosis of lumbar region without myelopathy or radiculopathy: Code(s): M47.816 - Spondylosis without myelopathy or radiculopathy, lumbar region Category: Medical (3) Chronic pain syndrome: Code(s): G89.4 - Chronic pain syndrome Category: Medical Plan She had very good results from sprint PNS in the past. I will schedule her for the repeat of this procedure starting from the left and then completion of the procedure 2 weeks after on the right. On the MRI there was some Modic type changes at L5-S1 interval. Prolong sitting and flexing forward she reports being painful. This is a possibility to address another pain generators in the future if sprint PNS will not be effective to control his pain at this time.. Coding Level of Care Code Est Pt Level 3 (94731) Diagnoses Disc degeneration, lumbar M51.36 Spondylosis of lumbar region without myelopathy or radiculopathy M47.816 Chronic pain syndrome G89.4
[2024-04-26 14:57] VITALS: BP 160/74; PULSE 80; O2SAT 98; BMI 33.5
== END 2024-04-26 15:40 | disposition home or self-care (01) ==
PROVIDERS: PCP Nurse Practitioner Family; Visit Provider Anesthesiology
DX: M51.369 Other intervertebral disc degeneration, lumbar region without mention of lumbar back pain or lower extremity pain (principal); M47.816 Spondylosis without myelopathy or radiculopathy, lumbar region; G89.4 Chronic pain syndrome
CPT/HCPCS: 99213

== ENCOUNTER → 2024-04-26 14:54 | Outpatient (BNVA) | payer MEDICARE, MEDICAID, SELFPAY | PROVIDERS: PCP Nurse Practitioner Family; Visit Provider Anesthesiology | DX: M51.369 Other intervertebral disc degeneration, lumbar region without mention of lumbar back pain or lower extremity pain (principal); M47.816 Spondylosis without myelopathy or radiculopathy, lumbar region; G89.4 Chronic pain syndrome | CPT/HCPCS: 99212 ==

== ENCOUNTER 2024-06-26 07:41 | Outpatient (REF) | payer MEDICARE, MEDICAID, SELFPAY ==
[2024-06-26 17:45] LABS: MANUAL DIFF FLAG NO
[2024-06-26 17:57] LABS: Basophils Absolute Auto 0.1 X10*3/uL (0.0-0.2); Basophils Percent Auto 0.6 % (0-2); Eosinophils Absolute Auto 0.1 X10*3/uL (0.0-0.4); Eosinophils Percent Auto 1.5 % (0-4); Hematocrit 42.2 % (37.0-47.0); Hemoglobin 13.9 g/dl (12.0-16.0); Imm Gran Abs Auto 0.03 X10*3/uL (0.00-0.03); Imm Gran Pct Auto 0.4 % (0.0-0.4); Lymphocytes Absolute Auto 2.3 X10*3/uL (1.2-4.9); Lymphocytes Percent Auto 29.7 % (20-40); Mean Corpuscular HGB Conc 32.9 g/dl (31.0-35.0); Mean Corpuscular Hemoglobin 29.8 pg (27.0-33.0); Mean Corpuscular Volume 90.4 fL (80.0-98.0); Mean Platelet Volume 9.8 fL (9.4-12.3); Monocytes Absolute Auto 0.4 X10*3/uL (0.1-1.2); Monocytes Percent Auto 5.1 % (2-11); Neutrophils Absolute Auto 4.9 x10*3/uL (2.0-8.3); Neutrophils Percent Auto 62.7 % (45-73); Platelet Count 260 X10*3/uL (160-400); Red Blood Count 4.67 X10*6/uL (4.20-5.50); Red Cell Distribution Width 12.6 % (11.0-16.0); White Blood Count 7.8 X10*3/uL (4.8-10.8)
[2024-06-26 18:21] LABS: Alanine Aminotransferase 21 U/L (0-31); Albumin Level 3.7 g/dL (3.5-5.0); Alkaline Phosphatase 56 U/L (39-117); Anion Gap 11 (12-20); Aspartate Amino Transferase 25 U/L (5-31); Bilirubin Total 0.6 mg/dL (0.0-1.0); Blood Urea Nitrogen 10 mg/dL (9-16); Calcium 8.4 mg/dL (8.4-10.2); Carbon Dioxide 26 mmol/L (22-29); Chloride 107 mmol/L (96-108); Estimated Glomerular Filt Rate > 60; Glucose Random 94 mg/dL (60-115); Potassium 3.7 mmol/L (3.3-5.1); Sodium 140 mmol/L (135-145); Total Protein 6.5 g/dL (6.5-8.0)
[2024-06-26 18:29] LABS: Ferritin 187 ng/mL (10-250); TSH reflex Free T4 1.42 uIU/mL (0.32-4.0)
[2024-06-26 18:41] LABS: Folate 9.5 ng/mL (> or = 4.0); Vitamin B12 579 pg/mL (200-900)
[2024-06-30 15:29] LABS: Vitamin D 25-OH, D2 <4 ng/mL; Vitamin D 25-OH, D3 19 ng/mL; Vitamin D 25-OH, Total 19 ng/mL (30-100)
== END 2024-06-26 07:42 | disposition home or self-care (01) ==
LOC: HO.HKASLDS 07:41
PROVIDERS: PCP Nurse Practitioner Family; Visit Provider Psychiatry & Neurology Neurology
DX: G47.19 Other hypersomnia (principal); R53.1 Weakness
CPT/HCPCS: 36415; 80053; 82306; 82607; 82728; 82746; 84443; 85025; 99202

== ENCOUNTER 2024-06-26 07:41 | Outpatient (AMB) | payer MEDICARE, MEDICAID, SELFPAY ==
--- NOTE | 2024-06-26 07:58 | MHC.OFFVIS ---
Vital Signs 06/26/24 08:00 Height 4 ft 11 in Weight 166 lb 6 oz BMI 33.6 BP 138/92 H Blood Pressure Location Rt brachial Position Sitting Pulse 63 Pulse Source Pulse Oximeter Pulse Oximetry (%) 99 Oxygen Delivery Method Room Air Intake Visit Reasons: INP-Transient Intake Note: patient referred by Dr. Luo for TIA Allergies No Known Allergies Allergy (Verified 06/26/24 08:02) HPI Comments Details: 49y/o Right Handed female with h/o HTN, depression , anxiety( well controlled), restless legs syndrome comes for neurological evaluation. In Jan she had an episode of right sided weakness It was lasted at night after dinner, she was very tired , walked to her bedroom and suddenly felt weak on the right side and had to hold on to the wall and lowered herself to the floor. It lasted few seconds to 1 minute and she was OK after that. She went to ER the next day . CT brain CTA of head and neck and @ [facility] were normal . she was started on aspirin 81mg qd. she denies any further episodes since then she is feeling good, her mood is stable . she sleeps good. she denies snoring but has excessive daytime sleepiness. [facility] Medical History (Updated 06/26/24 @ 08:24 by Chanda Kearney MD) Excessive daytime sleepiness Weakness Spondylosis of lumbosacral joint without myelopathy Disc degeneration, lumbar Arthritis of hip Chronic pain syndrome Truncal obesity Mononeuropathy, unspecified Back pain Depression with anxiety Psoriasis Restless leg syndrome Essential hypertension Rectal or anal pain Hemorrhoid Surgical History S/P placement of nerve stimulator H/O hemorrhoidectomy History of partial hysterectomy Family History Mother Diabetes mellitus Essential hypertension Sister Diabetes mellitus Psoriasis Maternal Grandmother Breast cancer Social History Housing: Apartment Alcohol intake: never Patient Tobacco Use Status: Never used Tobacco e-Cigarette/Vaping Use: Never Used Second Hand Smoke Exposure: No service: No Current occupational status: unemployed Gender identity: Female Cognitive needs: No Hearing needs: No Vision needs: Yes Female Reproductive History Menstrual Age of Menarche: 11 Physical Exam Vital Signs: Last Vital Signs Pulse 63 06/26/24 08:00 BP 138/92 H 06/26/24 08:00 Pulse Ox 99 06/26/24 08:00 Oxygen Delivery Method Room Air 06/26/24 08:00 BMI result Body Mass Index 33.6 Const General: cooperative, healthy appearing, comfortable and no acute distress Nutritional Appearance: overweight Orientation/consciousness: patient oriented x3 Eyes Pupils: Equal, round and reactive pupils present Neuro General: patient oriented x3, gait normal, tone normal, moves all extremities and no focal motor deficits Cranial nerves: Yes Facial sensation intact/muscles of mastication intact, Yes Equal, round and reactive pupils present, Yes Bilaterally intact EOM present, Yes Nystagmus not present, Yes Normal facial strength present, Yes Midline tongue present, Yes Symmetric palate elevation present and Yes Ability to bilaterally rotate head present Cognition (Neuro): normal cognition Gait exam (Neuro): Normal gait present Motor exam (neuro): 5/5 motor strength present throughout and Normal motor muscle tone present throughout Deep tendon reflexes (DTR's): Right triceps reflex intensity grade: 2+, Left triceps reflex intensity grade: 2+, Rt Biceps (C5, C6): 2+, Left biceps reflex intensity grade: 2+, Right brachioradialis reflex intensity grade: 2+, Left brachioradialis reflex intensity grade: 2+, Right patellar reflex intensity grade: 2+ and Left patellar reflex intensity grade: 2+ Coordination: [id number] test normal Assessment & Plan Assessment & Plan (1) Weakness: Comment: Transient right sided weakness- lasting seconds - unlikley to be a TIA due to very short duration- could be related to anxiety or cervical spondylosis Code(s): R53.1 - Weakness Category: Medical (2) Excessive daytime sleepiness: Code(s): G47.19 - Other hypersomnia Category: Medical Plan Reviewed records - CTA and CT nonfocal 2 D ECHO normal Continue aspirin 81mg qd I will do a home sleep study to r/o sleep apnea Orders: Orders TSH reflex Free T4 Today G47.19 - Other hypersomnia Vitamin D 25-OH (D2 and D3) Today G47.19 - Other hypersomnia Complete Blood Count Auto Diff Today G47.19 - Other hypersomnia RT home sleep study Today G47.19 - Other hypersomnia Vitamin B12 and Folate Today G47.19 - Other hypersomnia Ferritin Today G47.19 - Other hypersomnia Comprehensive Met. Panel Today G47.19 - Other hypersomnia Coding Level of Care Code New Pt Level 4 (37044) Diagnoses Weakness R53.1 Excessive daytime sleepiness G47.19
[2024-06-26 08:00] VITALS: BP 138/92; PULSE 63; O2SAT 99; BMI 33.6
== END 2024-06-26 08:30 | disposition home or self-care (01) ==
PROVIDERS: PCP Nurse Practitioner Family; Visit Provider Psychiatry & Neurology Neurology
DX: R53.1 Weakness (principal); G47.19 Other hypersomnia
CPT/HCPCS: 99204

== ENCOUNTER 2024-07-17 06:19 | Outpatient (REF) | payer MEDICARE, MEDICAID, SELFPAY ==
--- NOTE | ~2024-07-17 | FL_ITS ---
EXAMINATION: FL GUIDANCE ONLY HISTORY: M47.817 - Spondylosis without myelopathy or radiculopathy, lumbosacral r... COMPARISON: None available. TECHNIQUE: Fluoroscopy time: 0.1 minutes. Cumulative Dose: 1.28 mGy. DAP: 0.0222 mGym2 Images: 2. FINDINGS: Fluoroscopic spot films of the lower lumbar spine demonstrate a probe with its tip overlying the L5 vertebral body. FL/FL guidance in treatment room IMPRESSION: Fluoroscopy during procedure. Please see procedure report for additional information. Electronically signed by: Gaurang Gramajo MD 07/17/2024 10:39 AM EDT
== END 2024-07-17 06:20 | disposition home or self-care (01) ==
LOC: CF 06:19
PROVIDERS: Visit Provider Anesthesiology
DX: M47.816 Spondylosis without myelopathy or radiculopathy, lumbar region (principal)
CPT/HCPCS: 64555; C1778; J2003

== ENCOUNTER 2024-07-17 09:21 | Outpatient (AMB) | payer MEDICARE, MEDICAID, SELFPAY ==
[2024-07-17 09:31] VITALS: BP 178/102; PULSE 79; RESP 16; O2SAT 98
--- NOTE | 2024-07-17 09:31 | MHC.OFFVIS ---
Vital Signs 07/17/24 09:31 07/17/24 09:32 BP 178/102 H 161/86 H Blood Pressure Location Lt brachial Position Sitting Respiration 16 Pulse 79 Pulse Source Pulse Oximeter Pulse Oximetry (%) 98 Oxygen Delivery Method Room Air Comment BP recheck Intake Visit Reasons: LEFT L5 SPRINT PNS TRIAL Director Strategic Planning Required: No Allergies No Known Allergies Allergy (Verified 07/17/24 09:41) PFSH Medical History (Updated 06/26/24 @ 08:24 by Chanda Kearney MD) Excessive daytime sleepiness Weakness Spondylosis of lumbosacral joint without myelopathy Disc degeneration, lumbar Arthritis of hip Chronic pain syndrome Truncal obesity Mononeuropathy, unspecified Back pain Depression with anxiety Psoriasis Restless leg syndrome Essential hypertension Rectal or anal pain Hemorrhoid Surgical History S/P placement of nerve stimulator H/O hemorrhoidectomy History of partial hysterectomy Family History Mother Diabetes mellitus Essential hypertension Sister Diabetes mellitus Psoriasis Maternal Grandmother Breast cancer Social History Housing: Apartment Alcohol intake: never Patient Tobacco Use Status: Never used Tobacco e-Cigarette/Vaping Use: Never Used Second Hand Smoke Exposure: No service: No Current occupational status: unemployed Gender identity: Female Cognitive needs: No Hearing needs: No Vision needs: Yes Female Reproductive History Menstrual Age of Menarche: 11 Physical Exam Vital Signs: Last Vital Signs Pulse 79 07/17/24 09:31 Resp 16 07/17/24 09:31 BP 161/86 H 07/17/24 09:32 Pulse Ox 98 07/17/24 09:31 Oxygen Delivery Method Room Air 07/17/24 09:31 Assessment & Plan Assessment & Plan (1) Spondylosis of lumbar region without myelopathy or radiculopathy: Code(s): M47.816 - Spondylosis without myelopathy or radiculopathy, lumbar region Category: Medical Plan SPRINT L5 Left PNS. Percutaneous implantation of peripheral nerve stimulation Sprint system. After the risks, benefits and alternatives were discussed with the patient and informed consent was obtained, patient was placed in the prone position and padded to foster comfort. Time out was performed delineating correct site and side of the procedure , name and of the patient, patient participated in time out procedure. Sterily draped C-arm was brought over the operating field and clear picture of the L5 lamina on the right was delineated on the screen. The upper central portion of the lamina was chosen as a target of the needle tip insertion . After identifying and marking the intended target, the skin around the planned entry point and the subcutaneous tissues were injected with local anesthetic forming skin wheal.. A percutaneous sleeve and stimulating probe lead introduction system were assembled, inserted and advanced through the skin wheal to the point of interest under C-arm view in tunnel vision fashion, the introducer needle was delivered to a location in proximity to the nerve. Multiple stimulation parameters were used to deliver stimulation to the nerve in concert with stimulating at multiple positions around the nerve. nerve target acquisition was confirmed noting generation of in the corresponding to the nerve being stimulated. Various electrical parameter combinations were tested, and the lead location was adjusted (physically relocated) until the patient indicated overlapping the distribution of the patient?s typical region of pain. The stimulating probe was removed from the introducer and a percutaneous lead was guided through the needle and delivered to a location in similar proximity to the nerve. Final location was verified with electrical stimulation. The introducer needle was removed, and the exposed end of the percutaneous lead was attached to an external stimulator unit. At the end of the case various electrical parameter combinations were again tested until the patient indicated paresthesia or muscle tension overlapping the distribution of the patient?s typical region of pain. After confirming that lead impedance was in the normal range, the external unit was detached, the needle was removed, and the lead was anchored at the skin. The lead was threaded into the connector block and electrical continuity and desired patient response was confirmed. The connector block was attached to the external stimulator unit. The site was covered with a sterile occlusive dressing and a image was taken to document final placement. Upon completion of the procedure the patient was taken outside the OR where she recovered uneventfully she went home without immediate complications Orders: Orders FL guidance in treatment room Today M47.817 - Spondylosis without myelopathy or radiculopathy, lumbosacral region Coding Level of Care Code Procedure Only Diagnoses Spondylosis of lumbar region without myelopathy or radiculopathy M47.815
[2024-07-17 09:32] VITALS: BP 161/86
== END 2024-07-17 10:02 | disposition home or self-care (01) ==
LOC: HO.PMCPRC 09:21
PROVIDERS: PCP Nurse Practitioner Family; Visit Provider Anesthesiology
DX: M47.816 Spondylosis without myelopathy or radiculopathy, lumbar region (principal)
CPT/HCPCS: 64555

== ENCOUNTER 2024-07-31 06:14 | Outpatient (REF) | payer MEDICARE, MEDICAID, SELFPAY ==
--- NOTE | ~2024-07-31 | FL_ITS ---
EXAMINATION: FL GUIDANCE ONLY HISTORY: M47.816 - Spondylosis without myelopathy or radiculopathy, lumbar region COMPARISON: None available. TECHNIQUE: Fluoroscopy time: 0.2 minutes. Cumulative Dose: 2.15 mGy. DAP: 0.0264 mGym2 Images: 2. FINDINGS: Fluoroscopic spot films of the lumbar spine in the AP projection demonstrate a needle overlying the L4 vertebral body. FL/FL guidance in treatment room IMPRESSION: Fluoroscopy during procedure. Please see procedure report for additional information. Electronically signed by: Gaurang Gramajo MD 07/31/2024 10:29 AM EDT
== END 2024-07-31 06:15 | disposition home or self-care (01) ==
LOC: CF 06:14
PROVIDERS: Visit Provider Anesthesiology
DX: M47.816 Spondylosis without myelopathy or radiculopathy, lumbar region (principal)
CPT/HCPCS: 64555; J2003

== ENCOUNTER 2024-07-31 09:25 | Outpatient (AMB) | payer MEDICARE, MEDICAID, SELFPAY ==
[2024-07-31 09:31] VITALS: BP 174/95; PULSE 71; O2SAT 100
--- NOTE | 2024-07-31 09:31 | MHC.OFFVIS ---
Vital Signs 07/31/24 09:31 07/31/24 10:28 BP 174/95 H 164/97 H Blood Pressure Location Lt brachial Lt brachial Position Sitting Sitting Pulse 71 69 Pulse Source Pulse Oximeter Pulse Oximeter Pulse Oximetry (%) 100 99 Oxygen Delivery Method Room Air Room Air Comment Pre-Procedure Post-procedure Intake Visit Reasons: RIGHT L5 SPRINT PNS TRIAL Allergies No Known Allergies Allergy (Verified 07/17/24 09:41) PFS Medical History (Updated 06/26/24 @ 08:24 by Chanda Kearney MD) Excessive daytime sleepiness Weakness Spondylosis of lumbosacral joint without myelopathy Disc degeneration, lumbar Arthritis of hip Chronic pain syndrome Truncal obesity Mononeuropathy, unspecified Back pain Depression with anxiety Psoriasis Restless leg syndrome Essential hypertension Rectal or anal pain Hemorrhoid Surgical History S/P placement of nerve stimulator H/O hemorrhoidectomy History of partial hysterectomy Family History Mother Diabetes mellitus Essential hypertension Sister Diabetes mellitus Psoriasis Maternal Grandmother Breast cancer Social History Housing: Apartment Alcohol intake: never Patient Tobacco Use Status: Never used Tobacco e-Cigarette/Vaping Use: Never Used Second Hand Smoke Exposure: No service: No Current occupational status: unemployed Gender identity: Female Cognitive needs: No Hearing needs: No Vision needs: Yes Female Reproductive History Menstrual Age of Menarche: 11 Physical Exam Vital Signs: Last Vital Signs Pulse 69 07/31/24 10:28 BP 164/97 H 07/31/24 10:28 Pulse Ox 99 07/31/24 10:28 Oxygen Delivery Method Room Air 07/31/24 10:28 Assessment & Plan Assessment & Plan (1) Spondylosis of lumbar region without myelopathy or radiculopathy: Code(s): M47.816 - Spondylosis without myelopathy or radiculopathy, lumbar region Category: Medical Plan SPRINT L4 right PNS. Percutaneous implantation of peripheral nerve stimulation Sprint system. After the risks, benefits and alternatives were discussed with the patient and informed consent was obtained, patient was placed in the prone position and padded to foster comfort. Time out was performed delineating correct site and side of the procedure , name and of the patient, patient participated in time out procedure. Sterily draped C-arm was brought over the operating field and clear picture of the L4 lamina on the right was delineated on the screen. The upper central portion of the lamina was chosen as a target of the needle tip insertion . After identifying and marking the intended target, the skin around the planned entry point and the subcutaneous tissues were injected with local anesthetic forming skin wheal.. A percutaneous sleeve and stimulating probe lead introduction system were assembled, inserted and advanced through the skin wheal to the point of interest under C-arm view in tunnel vision fashion, the introducer needle was delivered to a location in proximity to the nerve. Multiple stimulation parameters were used to deliver stimulation to the nerve in concert with stimulating at multiple positions around the nerve. nerve target acquisition was confirmed noting generation of in the corresponding to the nerve being stimulated. Various electrical parameter combinations were tested, and the lead location was adjusted (physically relocated) until the patient indicated overlapping the distribution of the patient?s typical region of pain. The stimulating probe was removed from the introducer and a percutaneous lead was guided through the needle and delivered to a location in similar proximity to the nerve. Final location was verified with electrical stimulation. The introducer needle was removed, and the exposed end of the percutaneous lead was attached to an external stimulator unit. At the end of the case various electrical parameter combinations were again tested until the patient indicated paresthesia or muscle tension overlapping the distribution of the patient?s typical region of pain. After confirming that lead impedance was in the normal range, the external unit was detached, the needle was removed, and the lead was anchored at the skin. The lead was threaded into the connector block and electrical continuity and desired patient response was confirmed. The connector block was attached to the external stimulator unit. The site was covered with a sterile occlusive dressing and a image was taken to document final placement. Upon completion of the procedure the patient was taken outside the OR where she recovered uneventfully she went home without immediate complications Orders: Orders FL guidance in treatment room Today M47.816 - Spondylosis without myelopathy or radiculopathy, lumbar region Coding Level of Care Code Procedure Only Diagnoses Spondylosis of lumbar region without myelopathy or radiculopathy M47.816
[2024-07-31 10:28] VITALS: BP 164/97; PULSE 69; O2SAT 99
== END 2024-07-31 10:30 | disposition home or self-care (01) ==
LOC: HO.PMCPRC 09:25
PROVIDERS: PCP Nurse Practitioner Family; Visit Provider Anesthesiology
DX: M47.816 Spondylosis without myelopathy or radiculopathy, lumbar region (principal)
CPT/HCPCS: 64555

== ENCOUNTER 2024-09-10 09:40 | Outpatient (AMB) | payer MEDICARE, MEDICAID, SELFPAY ==
[2024-09-10 10:01] VITALS: BP 176/95; PULSE 87; O2SAT 100
--- NOTE | 2024-09-10 10:01 | MHC.OFFVIS ---
Vital Signs 09/10/24 10:01 Weight 163 lb BP 176/95 H Blood Pressure Location Lt brachial Position Sitting Pulse 87 Pulse Source Pulse Oximeter Pulse Oximetry (%) 100 Oxygen Delivery Method Room Air Intake Visit Reasons: LEFT L5 SPRINT REMOVAL Intake Note: Left and right sprint remove intact mid back Care Professionals Required: No Allergies No Known Allergies Allergy (Verified 09/10/24 10:02) Medication List - Last Reconciled 09/10/24 by Lurdes Davis, [employer]PER[employer]OR cholecalciferol (vitamin D3) 125 mcg PO QAM fluoxetine 10 mg PO DAILY gabapentin 300 mg PO DAILY 30 days lisinopril 10 mg PO DAILY ropinirole 1 mg PO BEDTIME 30 days Shower Chair shower chair with back HPI Comments Details: Ms. Sanches is in my office for the removal of the sprint PNS L5 bilateral leads. She reports 0 pain. She reports excellent mobility activities of daily living and social interactions. The lower back was washed with ChloraPrep and the sprint PNS electrodes were removed. The tips were intact. There is no redness minimal bloody discharge no swelling at the area of the electrode insertions. Patient is very satisfied with her treatment. Because of absence of the right in 2 weeks we removed both electrodes today. Prior: Ms. Sanches is very pleasant and very nice 44 years old female who is in my office today status post insertion of left L5 sprint PNS. It has been 9 months since the completion of her procedure. She requests me to schedule her for repetition of sprint PNS. We will schedule the procedure 1st on the left and then on the right since pain in the left is stronger. Initially? She received this procedure? on 01/26/2022 and she reported very good pain relief after the procedure.? She reported better mobility better activities of daily living and better social interactions. It looks like that her pain is starting to come back although in somewhat unusual way.? She reports pain in the projection of the sacroiliac joint with radiation to the left hip however the Codey test is negative, the pelvis compression test is negative, the Stinchfield test is negative and this does not give me in impression that she has sacroiliitis.? Most likely she is suffering from the same problem as it was before.? It has been 8 month since the PNS insertion.? We can repeat this procedure for her in the operating room. Results of L2-L3 L4 dorsal ramus L5 medial branch block which was performed on 12/15/2021.? The patient reports pain relief after the injection for up to 6 hours.? She reports that her pain from level of 7-9 went initially down to 2 out of 10 and 3/10 for the 1st-3 hours after the injection and after that it slowly went back to 4-5 and eventually to 6 on a 6 hour after the injection.? This corresponds to longevity y of the ropivacaine injection action. Prior: complains on lower back pain mostly on the left side with radiation into the left lower extremity.? She is the patient with long history of lower back pain.? She is under observation in my office for more than a year .? She had diagnostic medial branch block on the left which with the a resulting in some pain relief and after that she went for radiofrequency ablation of L4-5 medial branch blocks on the left.? She reported that the procedure was working for only 1 or 2 weeks.? Is supposed to work for at least 6 months.? 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 L5-S1 Bilateral transforaminal epidural steroid injection helped significantly for the pain radiating to the left lower extremity.? However pain on the lateral side of the left lumbar spine remain.? She completed physical therapy less than 1 year ago.? She tried NSAIDs and muscle relaxants to treat her pain with no effect.. [facility] Medical History (Updated 06/26/24 @ 08:24 by Chanda Kearney MD) Excessive daytime sleepiness Weakness Spondylosis of lumbosacral joint without myelopathy Disc degeneration, lumbar Arthritis of hip Chronic pain syndrome Truncal obesity Mononeuropathy, unspecified Back pain Depression with anxiety Psoriasis Restless leg syndrome Essential hypertension Rectal or anal pain Hemorrhoid Surgical History S/P placement of nerve stimulator H/O hemorrhoidectomy History of partial hysterectomy Family History Mother Diabetes mellitus Essential hypertension Sister Diabetes mellitus Psoriasis Maternal Grandmother Breast cancer Social History Housing: Apartment Alcohol intake: never Patient Tobacco Use Status: Never used Tobacco e-Cigarette/Vaping Use: Never Used Second Hand Smoke Exposure: No service: No Current occupational status: unemployed Gender identity: Female Cognitive needs: No Hearing needs: No Vision needs: Yes Female Reproductive History Menstrual Age of Menarche: 11 Review of Systems Const All systems reviewed & are unremarkable except as noted in HPI and below ENT Reports Normal hearing present Neuro Reports Normal hearing present, Denies confusion and Denies Sensory deficit (Neuro) Psych Denies confusion Physical Exam Vital Signs: Last Vital Signs Pulse 87 09/10/24 10:01 BP 176/95 H 09/10/24 10:01 Pulse Ox 100 09/10/24 10:01 Oxygen Delivery Method Room Air 09/10/24 10:01 Const General: No confusion Orientation/consciousness: No confusion Eyes Pupils: Equal, round and reactive pupils present EOM: EOMs intact bilaterally Chest Chest palpation & inspection: normal inspection of the chest Resp Effort & Inspection: normal respiratory effort, able to speak in complete sentences, normal respiratory pattern, no audible wheezes and no cough Cardio Jugular venous distension: no JVD Back/Spine/Pelvis Other: Flexing forward is making her pain worse. No discomfort on lateral rotation of the hip or medial rotation of the hip. Codey test is negative on the left Stinchfield test is negative on the left pelvis compression test is negative on the left , Sheyla finger test rather negative on the left and most of the tenderness on palpation is in projection of the to cm below iliac crest in the top of the crest projection. The loading test is positive on the left. Neuro General: No confusion Cranial nerves: Yes Equal, round and reactive pupils present and Yes Normal hearing present Sensory Exam: No Sensory deficit (Neuro) Psych Speech and movement: Normal speech and movement present Affect: normal affect Attitude: cooperative Thought process: Normal thought process present Thought content: Normal thought content present Insight: Good insight present (Psych) Judgement: Good judgement present (Psych) Assessment & Plan Assessment & Plan (1) Disc degeneration, lumbar: Code(s): M51.36 - Other intervertebral disc degeneration, lumbar region Category: Medical (2) Spondylosis of lumbar region without myelopathy or radiculopathy: Code(s): M47.816 - Spondylosis without myelopathy or radiculopathy, lumbar region Category: Medical (3) Chronic pain syndrome: Code(s): G89.4 - Chronic pain syndrome Category: Medical Plan She had very good results from sprint PNS again. The treatment was completed today because she does not have a ride to the office in 2 weeks. I will see her next time as needed. On the MRI there was some Modic type changes at L5-S1 interval. Prolong sitting and flexing forward she reports being painful. This is a possibility to address another pain generators in the future if sprint PNS will not be effective to control his pain at this time.. Coding Level of Care Code Est Pt Level 3 (79580) Diagnoses Disc degeneration, lumbar M51.36 Spondylosis of lumbar region without myelopathy or radiculopathy M47.816 Chronic pain syndrome G89.4
== END 2024-09-10 10:07 | disposition home or self-care (01) ==
LOC: HO.PMC 09:40
PROVIDERS: PCP Nurse Practitioner Family; Visit Provider Anesthesiology
DX: M51.369 Other intervertebral disc degeneration, lumbar region without mention of lumbar back pain or lower extremity pain (principal); M47.816 Spondylosis without myelopathy or radiculopathy, lumbar region; G89.4 Chronic pain syndrome
CPT/HCPCS: 99213

== ENCOUNTER → 2024-09-10 09:40 | Outpatient (BNVA) | payer MEDICARE, MEDICAID, SELFPAY | PROVIDERS: PCP Nurse Practitioner Family; Visit Provider Anesthesiology | DX: M47.816 Spondylosis without myelopathy or radiculopathy, lumbar region (principal); G89.4 Chronic pain syndrome; M51.360 Other intervertebral disc degeneration, lumbar region with discogenic back pain only; Z45.42 Encounter for adjustment and management of neurostimulator | CPT/HCPCS: 99212 ==

== ENCOUNTER 2025-02-27 11:19 | Outpatient (AMB) | payer MEDICARE, MEDICAID, SELFPAY ==
--- NOTE | 2025-02-27 11:20 | MHC.OFFVIS ---
Vital Signs 02/27/25 11:21 Height 4 ft 11 in Weight 168 lb BMI 33.9 BP 193/95 H Blood Pressure Location Rt brachial Position Sitting Respiration 16 Pulse 72 Pulse Source Pulse Oximeter Pulse Oximetry (%) 95 Oxygen Delivery Method Room Air Intake Visit Reasons: Lower Left Back Pain Foot And Ankle Surgeon Required: No Accompanied by: Self / Same As Patient Allergies No Known Allergies Allergy (Verified 02/27/25 11:24) HPI Comments Details: Ms. Sanches is in my office with different complaint. She used to complain on pain in the center of the lower back without radiation and she received sprint PNS for this procedure with great success. However now she reports pain in the projection of the left sacroiliac joint which is aggravated when she is lying down in attempting to turn herself to the sides. On physical exam as below sacroiliitis is spinal cord. I offered the patient to perform diagnostic left sacroiliac joint injection. I will schedule this procedure and then we will decide on further actions . Prior: Ms. Sanches is very pleasant and very nice 44 years old female who is in my office today status post insertion of left L5 sprint PNS. It has been 9 months since the completion of her procedure. She requests me to schedule her for repetition of sprint PNS. We will schedule the procedure 1st on the left and then on the right since pain in the left is stronger. Initially? She received this procedure? on 01/26/2022 and she reported very good pain relief after the procedure.? She reported better mobility better activities of daily living and better social interactions. It looks like that her pain is starting to come back although in somewhat unusual way.? She reports pain in the projection of the sacroiliac joint with radiation to the left hip however the Codey test is negative, the pelvis compression test is negative, the Stinchfield test is negative and this does not give me in impression that she has sacroiliitis.? Most likely she is suffering from the same problem as it was before.? It has been 8 month since the PNS insertion.? We can repeat this procedure for her in the operating room. Results of L2-L3 L4 dorsal ramus L5 medial branch block which was performed on 12/15/2021.? The patient reports pain relief after the injection for up to 6 hours.? She reports that her pain from level of 7-9 went initially down to 2 out of 10 and 3/10 for the 1st-3 hours after the injection and after that it slowly went back to 4-5 and eventually to 6 on a 6 hour after the injection.? This corresponds to longevity y of the ropivacaine injection action. Prior: complains on lower back pain mostly on the left side with radiation into the left lower extremity.? She is the patient with long history of lower back pain.? She is under observation in my office for more than a year .? She had diagnostic medial branch block on the left which with the a resulting in some pain relief and after that she went for radiofrequency ablation of L4-5 medial branch blocks on the left.? She reported that the procedure was working for only 1 or 2 weeks.? Is supposed to work for at least 6 months.? 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 L5-S1 Bilateral transforaminal epidural steroid injection helped significantly for the pain radiating to the left lower extremity.? However pain on the lateral side of the left lumbar spine remain.? She completed physical therapy less than 1 year ago.? She tried NSAIDs and muscle relaxants to treat her pain with no effect.. [facility] Medical History (Updated 02/27/25 @ 12:49 by Kaushik Lord MD) Excessive daytime sleepiness Weakness Spondylosis of lumbosacral joint without myelopathy Disc degeneration, lumbar Arthritis of hip Chronic pain syndrome Truncal obesity Mononeuropathy, unspecified Back pain Depression with anxiety Psoriasis Restless leg syndrome Essential hypertension Rectal or anal pain Hemorrhoid Surgical History S/P placement of nerve stimulator H/O hemorrhoidectomy History of partial hysterectomy Family History Mother Diabetes mellitus Essential hypertension Sister Diabetes mellitus Psoriasis Maternal Grandmother Breast cancer Social History Housing: Apartment Alcohol intake: never Patient Tobacco Use Status: Never used Tobacco e-Cigarette/Vaping Use: Never Used Second Hand Smoke Exposure: No service: No Current occupational status: unemployed Gender identity: Female Cognitive needs: No Hearing needs: No Vision needs: Yes Female Reproductive History Menstrual Age of Menarche: 11 Review of Systems Const All systems reviewed & are unremarkable except as noted in HPI and below ENT Reports Normal hearing present Neuro Reports Normal hearing present, Denies confusion and Denies Sensory deficit (Neuro) Psych Denies confusion Physical Exam Vital Signs: Last Vital Signs Pulse 72 02/27/25 11:21 Resp 16 02/27/25 11:21 BP 193/95 H 02/27/25 11:21 Pulse Ox 95 02/27/25 11:21 Oxygen Delivery Method Room Air 02/27/25 11:21 BMI result Body Mass Index 33.9 Const General: No confusion Orientation/consciousness: No confusion Eyes Pupils: Equal, round and reactive pupils present EOM: EOMs intact bilaterally Chest Chest palpation & inspection: normal inspection of the chest Resp Effort & Inspection: normal respiratory effort, able to speak in complete sentences, normal respiratory pattern, no audible wheezes and no cough Cardio Jugular venous distension: no JVD Back/Spine/Pelvis Other: Flexing forward is making her pain worse. No discomfort on lateral rotation of the hip or medial rotation of the hip. Codey test is positive on the left pelvic compression and pelvic distraction both positive on the left. Sheyla finger test positive on the left and most of the tenderness on palpation is in projection of the to cm below iliac crest in the top of the crest projection. The loading test is positive on the left. Neuro General: No confusion Cranial nerves: Yes Equal, round and reactive pupils present and Yes Normal hearing present Sensory Exam: No Sensory deficit (Neuro) Psych Speech and movement: Normal speech and movement present Affect: normal affect Attitude: cooperative Thought process: Normal thought process present Thought content: Normal thought content present Insight: Good insight present (Psych) Judgement: Good judgement present (Psych) Results Reviewed Results Reviewed: 01/19/21 MRI FINDINGS: There are 5 nonrib-bearing lumbar-type vertebral bodies. Lumbar alignment is maintained. Vertebral body heights are preserved. There is marrow edema along the upper endplate of L2 eccentric to the left side that could be degenerative though a mild acute upper endplate compression fracture would be difficult to exclude. No additional bone marrow edema. Conus terminates at the L2 level. There are no significant extraspinal soft tissue findings. Hypertrophic degenerative changes across the SI joints bilaterally. At T10-T11, a shallow central disc protrusion mildly narrows the central canal. Findings unchanged. L1-L2: There is an annular disc bulge eccentric to the right side and there is mild bilateral facet arthropathy. No central canal stenosis and no foraminal stenosis. Findings unchanged. L2-L3: Small annular disc bulge and mild to moderate bilateral facet arthropathy. No central canal stenosis and no foraminal stenosis. Findings unchanged. L3-L4: Annular disc bulge and moderate bilateral facet arthropathy. No central canal stenosis. Mild foraminal encroachment bilaterally. Findings unchanged. L4-L5: There is a diffuse annular disc bulge and there is moderate bilateral facet arthropathy. No central canal stenosis. There is mild foraminal encroachment bilaterally. L5-S1: Shallow central disc protrusion associated with an annular fissure is stable, mildly narrowing the central canal. Disc osteophyte and facet arthropathy result in similar moderate to severe left and moderate right foraminal stenosis with mass effect on the exiting left greater than right L5 nerve roots. - At L5-S1, multifactorial degenerative changes result in stable appearing moderate to severe left and moderate right foraminal stenosis with mass effect on the exiting left greater than right L5 nerve roots. A shallow central disc protrusion associated with an annular fissure at this level. Additional stable appearing degenerative findings as discussed above. ? - There is marrow edema along the upper endplate of L2 eccentric to the left side that could be degenerative though a mild acute upper endplate compression fracture would be difficult to exclude. ? - At T10-T11, a shallow central disc protrusion continues to mildly narrow the central canal and slightly flatten the ventral cord. ? Assessment & Plan Assessment & Plan (1) Disc degeneration, lumbar: Code(s): M51.36 - Other intervertebral disc degeneration, lumbar region Category: Medical (2) Spondylosis of lumbar region without myelopathy or radiculopathy: Code(s): M47.816 - Spondylosis without myelopathy or radiculopathy, lumbar region Category: Medical (3) Chronic pain syndrome: Code(s): G89.4 - Chronic pain syndrome Category: Medical (4) Sacroiliac joint dysfunction of left side: Code(s): M53.3 - Sacrococcygeal disorders, not elsewhere classified Category: Medical Plan Patient is here again after 2nd successful lumbar sprint PNS in September of 2024. She has with new pain in the projection of the left sacroiliac joint she reports pain aggravation when she is turning from [id number] when she is asleep. She admits tenderness on palpation in the projection of the left SI joint. She reports that this is completely different pain compared to what she had when she was receiving treatment for spondylotic pain in the lumbar spine. I will schedule her for diagnostic left SI joint injection. I will see this patient after the injection. If this injection will be successful to alleviate her pain for the time corresponding with time of the local anesthetic action I will schedule her for therapeutic SI joint injection. Continuation of the treatment of SI joint problem will be also considered. If diagnostic left SI joint injection will not be successful I will send her for the MRI of the lumbar spine, in 2020 she had an MRI of the lumbar spine which demonstrated some Modic type changes in the lower portion of the lumbar vertebra. Patient Instructions: I here by testify that I spent 30 minutes in conversation with this patient as well as planning her care and organizing this note. Coding Level of Care Code Est Pt Level 4 (90506) Diagnoses Disc degeneration, lumbar M51.36 Spondylosis of lumbar region without myelopathy or radiculopathy M47.816 Chronic pain syndrome G89.4 Sacroiliac joint dysfunction of left side M53.3
[2025-02-27 11:21] VITALS: BP 193/95; PULSE 72; RESP 16; O2SAT 95; BMI 33.9
== END 2025-02-27 11:58 | disposition home or self-care (01) ==
LOC: HO.PMC 11:20
PROVIDERS: PCP Nurse Practitioner Family; Visit Provider Anesthesiology
DX: M51.369 Other intervertebral disc degeneration, lumbar region without mention of lumbar back pain or lower extremity pain (principal); M47.816 Spondylosis without myelopathy or radiculopathy, lumbar region; G89.4 Chronic pain syndrome; M53.3 Sacrococcygeal disorders, not elsewhere classified
CPT/HCPCS: 99214

== ENCOUNTER → 2025-02-27 11:19 | Outpatient (BNVA) | payer MEDICARE, MEDICAID, SELFPAY | PROVIDERS: PCP Nurse Practitioner Family; Visit Provider Anesthesiology | DX: M51.369 Other intervertebral disc degeneration, lumbar region without mention of lumbar back pain or lower extremity pain (principal); M47.816 Spondylosis without myelopathy or radiculopathy, lumbar region; M53.3 Sacrococcygeal disorders, not elsewhere classified; G89.4 Chronic pain syndrome | CPT/HCPCS: 99212 ==

== ENCOUNTER 2025-03-12 06:10 | Outpatient (REF) | payer MEDICARE, MEDICAID, SELFPAY ==
--- NOTE | ~2025-03-12 | FL_ITS ---
EXAMINATION: FL GUIDANCE ONLY HISTORY: M53.3 - Sacrococcygeal disorders, not elsewhere classified COMPARISON: None available. TECHNIQUE: Fluoroscopy time: 13 seconds. Cumulative Dose: 3.90 mGy. DAP: 452.60 mGycm2 Images: 2. FINDINGS: Fluoroscopic spot films of the left hemipelvis demonstrate a needle and contrast material in the region of the sacroiliac joint. FL/FL guidance in treatment room IMPRESSION: Fluoroscopy during procedure. Please see procedure report for additional information. Electronically signed by: Gaurang Gramajo MD 03/12/2025 03:39 PM EST
== END 2025-03-12 06:11 | disposition home or self-care (01) ==
LOC: CF 06:10
PROVIDERS: Visit Provider Anesthesiology
DX: M53.3 Sacrococcygeal disorders, not elsewhere classified (principal)
CPT/HCPCS: 27096; J2003; J2795; Q9967

== ENCOUNTER 2025-03-12 07:24 | Outpatient (AMB) | payer MEDICARE, MEDICAID, SELFPAY ==
[2025-03-12 07:28] VITALS: BP 178/92; PULSE 72; RESP 16; O2SAT 97; BMI 33.9
--- NOTE | 2025-03-12 07:28 | MHC.OFFVIS ---
Vital Signs 03/12/25 07:28 03/12/25 08:01 Height 4 ft 11 in Weight 168 lb BMI 33.9 BP 178/92 H 144/94 H Blood Pressure Location Lt brachial Lt brachial Position Sitting Sitting Respiration 16 16 Pulse 72 71 Pulse Source Pulse Oximeter Pulse Oximeter Pulse Oximetry (%) 97 99 Oxygen Delivery Method Room Air Room Air Intake Visit Reasons: Left Diagnostic SIJ Injection Allergies No Known Allergies Allergy (Verified 02/27/25 11:24) [facility] Medical History (Updated 02/27/25 @ 12:49 by Kaushik Lord MD) Excessive daytime sleepiness Weakness Spondylosis of lumbosacral joint without myelopathy Disc degeneration, lumbar Arthritis of hip Chronic pain syndrome Truncal obesity Mononeuropathy, unspecified Back pain Depression with anxiety Psoriasis Restless leg syndrome Essential hypertension Rectal or anal pain Hemorrhoid Surgical History S/P placement of nerve stimulator H/O hemorrhoidectomy History of partial hysterectomy Family History Mother Diabetes mellitus Essential hypertension Sister Diabetes mellitus Psoriasis Maternal Grandmother Breast cancer Social History Housing: Apartment Alcohol intake: never Patient Tobacco Use Status: Never used Tobacco e-Cigarette/Vaping Use: Never Used Second Hand Smoke Exposure: No service: No Current occupational status: unemployed Gender identity: Female Cognitive needs: No Hearing needs: No Vision needs: Yes Female Reproductive History Menstrual Age of Menarche: 11 Physical Exam Vital Signs: Last Vital Signs Pulse 71 03/12/25 08:01 Resp 16 03/12/25 08:01 BP 144/94 H 03/12/25 08:01 Pulse Ox 99 03/12/25 08:01 Oxygen Delivery Method Room Air 03/12/25 08:01 BMI result Body Mass Index 33.9 Assessment & Plan Assessment & Plan (1) Sacroiliac joint dysfunction of left side: Code(s): M53.3 - Sacrococcygeal disorders, not elsewhere classified Category: Medical Plan Left diagnostic sacroiliac joint injection. Marguerite is very pleasant 49 years old female suffering from sacroiliitis and sacroiliac joint dysfunction of the left. She came today to the operating room to receive diagnostic left SI joint injection. Informed consent was thoroughly explained to the patient risks and benefits were explained. The patient was positioned prone on the operating table with pillow under her abdomen. The lower back and upper buttocks were prepped with ChloraPrep and draped with sterile self adhesive utility towels. C-arm was brought over the operating field and sq picture of the left sacroiliac joint was demonstrated on the screen. Tilting C-arm contralateral to the right the posterior silhouette of the sacroiliac joint was superimposed on anterior silhouette of the sacroiliac joint. Slightly medial to the projection of the joint to the skin injection of the local anesthetic lidocaine 2% mixed with ropivacaine 0.5% was performed. After that 22 gauge 3-1/2 inch needle was driven to were the point of interest in tunnel vision fashion. When tip of the needle entered posterior capsule of the joint injection of the contrast was performed delineating arthrogram. After that injection of the ropivacaine 0.5% 5 ml was performed. Upon completion of the injection needle was withdrawn sterile Band-Aid was applied. The patient tolerated the procedure well. Orders: Orders FL guidance in treatment room Today M53.3 - Sacrococcygeal disorders, not elsewhere classified Coding Level of Care Code Procedure Only Diagnoses Sacroiliac joint dysfunction of left side M53.3
[2025-03-12 08:01] VITALS: BP 144/94; PULSE 71; RESP 16; O2SAT 99
== END 2025-03-12 08:01 | disposition home or self-care (01) ==
LOC: HO.PMCPRC 07:24
PROVIDERS: PCP Nurse Practitioner Family; Visit Provider Anesthesiology
DX: M53.3 Sacrococcygeal disorders, not elsewhere classified (principal); M46.1 Sacroiliitis, not elsewhere classified
CPT/HCPCS: 27096